=== PATIENT | female | born 1960 | race Caucasian/White ===

== ENCOUNTER 2017-12-11 16:21 | Emergency (ER) | payer OTHER, MEDICAID, SELFPAY ==
[2017-12-11 16:26] VITALS: BP 113/74; PULSE 125; RESP 22; TEMP 38.3; O2SAT 93
--- NOTE | 2017-12-11 17:09 | ED.ABDPAIN ---
HPI - Abdominal Pain General Chief Complaint: Abdominal Pain Stated Complaint: LEFT ARM PAIN,NAUSEA/VOMIT RECENT FX,L WRIST Time Seen by Provider: 12/11/17 16:55 Source: patient Mode of arrival: ambulatory Limitations: no limitations History of Present Illness HPI narrative: Patient is here for evaluation of fever and coughing and right lower quadrant abdominal pain. She states that the symptoms started on Tuesday of last week. She did have surgery on Tuesday of last week for a left wrist fracture which I evaluated here in the emergency department in the past. States that she has had a productive cough fevers. Right lower quadrant pain which she states may be because of all the coughing however has also had problems controlling bowel movements. No urinary symptoms. No skin changes. Related Data Previous Rx's Medication Instructions Recorded hydrocodone-acetaminophen 1 tab PO Q4-6H PRN #20 tab 11/26/17 hydrocodone-acetaminophen 1 tab PO Q4-6H PRN #8 tab 11/26/17 levofloxacin 750 mg PO Q24H 5 Days #5 tab 12/11/17 Allergies Allergy/AdvReac Type Severity Reaction Status Date / Time iodine Allergy Severe SWELLING Verified 11/26/17 14:41 Review of Systems Constitutional Reports fatigue, Reports fever(s) and Reports weakness Cardiovascular Denies chest pain, Denies irregular heart rhythm, Denies lightheadedness, Denies palpitations and Denies orthopnea Respiratory Reports change in phlegm color, Reports chest congestion, Reports cough, Reports excessive phlegm production and Reports pain with cough Gastrointestinal Gastrointestinal: Reports abdominal pain, Denies heartburn, Reports fecal incontinence, Reports diarrhea and Reports nausea Genitourinary Denies hematuria, Denies flank pain, Denies urinary incontinence and Denies urinary urgency Musculoskeletal Comments: Postoperative pain left wrist Integumentary/Breasts Denies pruritus, Denies erythema, Denies rash and Denies wounds Neurologic Reports weakness Endocrine Reports fatigue and Denies palpitations Hematologic/Lymphatic Denies easy bruising [facility] Medical History Distal radius fracture, left (Acute) Social History Smoking Status: Current every day smoker Exam Initial Vital Signs Initial Vital Signs: Vital Signs Temperature 101.0 F H 12/11/17 16:26 Pulse Rate 125 H 12/11/17 16:26 Respiratory Rate 22 05/20/18 16:26 Blood Pressure 113/74 12/11/17 16:26 Pulse Oximetry 93 12/11/17 16:26 [facility] Head: normal to inspection, normocephalic and atraumatic Resp Effort & Inspection: normal respiratory effort, cough, not labored, no nasal flaring, no respiratory distress and no retractions Auscultation: clear to auscultation bilaterally, no rales, no rhonchi and no wheezes Cardio Rate: tachycardic Rhythm: regular rhythm GI Inspection: normal to inspection and non-distended Palpation: soft, No guarding and tender (Right lower quadrant) Skin General: no rashes or lesions noted, No jaundice and No petechiae Neuro General: alert, oriented x3, gait normal and no focal motor deficits Cranial Nerves: CN's II-XI intact bilaterally Speech: speech normal Motor: strength 5/5 throughout Sensory Exam: no sensory deficits noted Extrem Other: Postoperative left wrist splint in place Course Orders Ordered: ED Orders 12/11/17 16:40 Complete Blood Count AUTO DIFF Stat Comprehensive Metabolic Panel Stat Lactate (Lactic Acid) Stat Lipase Stat 12/11/17 17:23 CT abdomen pelvis w con Stat XR chest 2V Stat Urinalysis and Microscopic Stat Acetaminophen (Tylenol) 650 mg PO Q4HR PRN PRN Reason: As Needed for Fever/Mild Pain Ondansetron HCl (Zofran) 4 mg IV Q2HR PRN PRN Reason: Nausea And Vomiting Last Admin: 12/11/17 18:08 Dose: 4 mg Discontinued Medications Sodium Chloride (Normal Saline 0.9%) 1,000 mls @ 1,000 mls/hr IV BOLUS ONE Stop: 12/11/17 18:21 Last Infusion: 12/11/17 18:39 Dose: 0 mls/hr Admin: 12/11/17 17:36 Dose: 1,000 mls/hr Levofloxacin (Levaquin) 750 mg PO NOW ONE Stop: 12/11/17 18:01 Last Admin: 12/11/17 18:09 Dose: 750 mg Vital Signs - 8 hr 12/11/17 16:26 12/11/17 18:24 Temperature 101.0 F H 103.0 F H Pulse Rate 125 H 114 H Respiratory Rate 22 22 Blood Pressure 113/74 Blood Pressure [Right Arm] 131/74 H Pulse Oximetry 93 93 MDM - Abdominal Pain Lab Data Attestation: I reviewed the patient's lab results. Result diagrams: 12/11/17 16:40 12/11/17 16:40 Lab Results 12/11/17 12/11/17 12/11/17 Range/Units 16:40 16:40 16:40 WBC 22.1 H (4.5-11.0) X10^3/uL RBC 5.15 (4.0-5.2) X10^6/uL Hgb 15.8 (12.0-16.0) g/dL Hct 45.8 (36-46) % MCV 88.9 (80-100) fL MCH 30.7 (26-34) PG MCHC 34.5 (30-36) % RDW 13.0 (11.6-14.8) % Plt Count 387 (150-400) X10^3/uL Neut % (Auto) 85.5 H (50-75) % Lymph % (Auto) 5.3 L (25-40) % [place] % (Auto) 9.0 (3-14) % Eos % (Auto) 0.0 L (2-4) % Baso % (Auto) 0.2 (0-2) % Neut # (Auto) 32852 H (6389-6040) /uL Sodium 137 (137-145) mmol/L Potassium 3.8 (3.4-5.1) mmol/L Chloride 100.0 (98-107) mmol/L Carbon Dioxide 24.0 (22-32) mmol/L BUN 15.0 (7-17) mg/dL Creatinine 0.70 (0.52-1.04) mg/dL Estimated GFR > 60.0 (>60) mL/min BUN/Creatinine Ratio 21.4 (6-22) Glucose 116 H (70-100) mg/dL Lactate 1.2 (0.7-2.1) mmol/L Calcium 9.4 (8.4-10.2) mg/dL Total Bilirubin 0.9 (0.2-1.3) mg/dL AST 19 (14-36) IU/L ALT 15 (9-52) IU/L Alkaline Phosphatase 139 H (38-126) U/L Total Protein 7.9 (6.3-8.2) g/dL Albumin 3.9 (3.5-5.0) g/dL Globulin 4.0 (1.7-4.1) g/dL Albumin/Globulin Ratio 1.0 (1.0-2.8) Lipase (23-300) U/L 12/11/17 Range/Units 16:40 WBC (4.5-11.0) X10^3/uL RBC (4.0-5.2) X10^6/uL Hgb (12.0-16.0) g/dL Hct (36-46) % MCV (80-100) fL MCH (26-34) PG MCHC (30-36) % RDW (11.6-14.8) % Plt Count (150-400) X10^3/uL Neut % (Auto) (50-75) % Lymph % (Auto) (25-40) % [place] % (Auto) (3-14) % Eos % (Auto) (2-4) % Baso % (Auto) (0-2) % Neut # (Auto) (1212-0201) /uL Sodium (137-145) mmol/L Potassium (3.4-5.1) mmol/L Chloride (98-107) mmol/L Carbon Dioxide (22-32) mmol/L BUN (7-17) mg/dL Creatinine (0.52-1.04) mg/dL Estimated GFR (>60) mL/min BUN/Creatinine Ratio (6-22) Glucose (70-100) mg/dL Lactate (0.7-2.1) mmol/L Calcium (8.4-10.2) mg/dL Total Bilirubin (0.2-1.3) mg/dL AST (14-36) IU/L ALT (9-52) IU/L Alkaline Phosphatase (38-126) U/L Total Protein (6.3-8.2) g/dL Albumin (3.5-5.0) g/dL Globulin (1.7-4.1) g/dL Albumin/Globulin Ratio (1.0-2.8) Lipase 29 (23-300) U/L Imaging Data Chest x-ray: Radiologist's impression: PROCEDURE: XR CHEST 2V INDICATIONS: Fever and cough post surgery TECHNIQUE: 2 views of the chest were acquired. COMPARISON: [facility] CR, XR CHEST 1 VIEW, 08/16/2017, 16:37. FINDINGS: Surgical changes and devices: None. Lungs and pleura: There are confluent right lower lobe opacities consistent with consolidation. There is suggestion of a small right pleural effusion. Left lung appears clear. Mediastinum: Mediastinal contours are normal. Heart size is normal. Bones and chest wall: No suspicious bony abnormalities. Soft tissues appear unremarkable. IMPRESSION: 1. Right lower lobe consolidation consistent with pneumonia with a small parapneumonic effusion. Dictated by: Jaison Hale M.D. on 12/11/2017 at 17:56 CT scan - abdomen: Radiologist's impression: PROCEDURE: CT ABDOMEN PELVIS W CON INDICATIONS: Right lower quadrant abdominal pain TECHNIQUE: After the administration of intravenous contrast, 5 mm thick sections acquired from the diaphragms to the symphysis. 5 mm thick coronal and sagittal reformats were performed. For radiation dose reduction, the following was used: automated exposure control, adjustment of mA and/or kV according to patient size. COMPARISON: [facility], , ABDOMEN WITHOUT CONTRAST, 05/17/2014, 9:55. FINDINGS: Image quality: Excellent. ABDOMEN: Lung bases: There is confluent consolidation within the right lower lobe. Mild enlarged mediastinal and right hilar lymph nodes are demonstrated, measuring up to approximately 1.2 cm in short axis. Heart size is normal. Solid organs: Liver is normal in size and enhancement. Gallbladder is surgically absent. Biliary system is non-dilated. Pancreas enhances normally. Spleen is normal in size and enhancement. No adrenal nodules. Kidneys demonstrate no hydronephrosis. There are small hypodensities in the kidneys which are too small to characterize but likely represent cysts. Peritoneum and bowel: Stomach, small bowel, and colon loops are normal in caliber and wall thickness. The appendix is normal in appearance. There is intraluminal fluid throughout the colon with air-fluid levels suggestive of a gastroenteritis. No free fluid or air. Nodes and vessels: No retroperitoneal or mesenteric adenopathy. Aorta and inferior vena cava are normal in caliber. Miscellaneous: No ventral hernias. PELVIS: Genitourinary: Bladder wall thickness is normal. Miscellaneous: No inguinal hernias or adenopathy. Bones: No suspicious bony lesions. No vertebral body compression fractures. IMPRESSION: 1. Right lower lobe consolidation consistent with pneumonia. 2. Enlarged right hilar and mediastinal lymph nodes are nonspecific and may be reactive. 3. No evidence of appendicitis. 4. Intraluminal fluid throughout the colon with air-fluid levels suggestive of a gastroenteritis. Dictated by: Jaison Hale M.D. on 12/11/2017 at 18:29 MDM Narrative Medical decision making narrative: Patient is not in respiratory distress. Tolerated oral medications here in the emergency department. Does have a right lower lobe pneumonia. I suspect this is secondary from the surgery 1 week ago either from the intubation or from the vomiting afterwards. Will send home on Levaquin. Patient was given return precautions. Has a follow-up in a couple days with her orthopedic surgeon. It did not take the surgical dressing down as I have low suspicion for an infection. Patient expressed understanding and agreement with plan Discharge Plan Departure Patient Disposition: Home, Self-Care Clinical Impression: Pneumonia Instructions: DI for Pneumonia -- Adult Activity Restrictions/Additional Instructions: Take the antibiotics as directed. Keep all of your scheduled medical appointments. Return to the emergency department for any new symptoms, problems breathing, inability to take the antibiotics or any other concerning symptoms. Call your primary care doctor for a follow-up. Prescriptions: New levofloxacin 750 mg tablet 750 mg PO Q24H 5 Days Qty: 5 RF: 0 No Action hydrocodone-acetaminophen 5-325 mg tablet 1 tab PO Q4-6H PRN (Reason: pain) Qty: 8 RF: 0 hydrocodone-acetaminophen 5-325 mg tablet 1 tab PO Q4-6H PRN (Reason: pain) Qty: 20 RF: 0
--- NOTE | 2017-12-11 17:23 | DI.RAD.S_ITS ---
PROCEDURE: XR CHEST 2V INDICATIONS: Fever and cough post surgery TECHNIQUE: 2 views of the chest were acquired. COMPARISON: [facility], CR, XR CHEST 1 VIEW, 08/16/2017, 16:37. FINDINGS: Surgical changes and devices: None. Lungs and pleura: There are confluent right lower lobe opacities consistent with consolidation. There is suggestion of a small right pleural effusion. Left lung appears clear. Mediastinum: Mediastinal contours are normal. Heart size is normal. Bones and chest wall: No suspicious bony abnormalities. Soft tissues appear unremarkable. IMPRESSION: 1. Right lower lobe consolidation consistent with pneumonia with a small parapneumonic effusion. Dictated by: Jaison Hale M.D. on 12/11/2017 at 17:56 Approved by: Jaison Hale M.D. on 12/11/2017 at 18:00
--- NOTE | 2017-12-11 17:23 | DI.CT.S_ITS ---
PROCEDURE: CT ABDOMEN PELVIS W CON INDICATIONS: Right lower quadrant abdominal pain TECHNIQUE: After the administration of intravenous contrast, 5 mm thick sections acquired from the diaphragms to the symphysis. 5 mm thick coronal and sagittal reformats were performed. For radiation dose reduction, the following was used: automated exposure control, adjustment of mA and/or kV according to patient size. COMPARISON: [facility], , ABDOMEN WITHOUT CONTRAST, 05/17/2014, 9:55. FINDINGS: Image quality: Excellent. ABDOMEN: Lung bases: There is confluent consolidation within the right lower lobe. Mild enlarged mediastinal and right hilar lymph nodes are demonstrated, measuring up to approximately 1.2 cm in short axis. Heart size is normal. Solid organs: Liver is normal in size and enhancement. Gallbladder is surgically absent. Biliary system is non-dilated. Pancreas enhances normally. Spleen is normal in size and enhancement. No adrenal nodules. Kidneys demonstrate no hydronephrosis. There are small hypodensities in the kidneys which are too small to characterize but likely represent cysts. Peritoneum and bowel: Stomach, small bowel, and colon loops are normal in caliber and wall thickness. The appendix is normal in appearance. There is intraluminal fluid throughout the colon with air-fluid levels suggestive of a gastroenteritis. No free fluid or air. Nodes and vessels: No retroperitoneal or mesenteric adenopathy. Aorta and inferior vena cava are normal in caliber. Miscellaneous: No ventral hernias. PELVIS: Genitourinary: Bladder wall thickness is normal. Miscellaneous: No inguinal hernias or adenopathy. Bones: No suspicious bony lesions. No vertebral body compression fractures. IMPRESSION: 1. Right lower lobe consolidation consistent with pneumonia. 2. Enlarged right hilar and mediastinal lymph nodes are nonspecific and may be reactive. 3. No evidence of appendicitis. 4. Intraluminal fluid throughout the colon with air-fluid levels suggestive of a gastroenteritis. Dictated by: Jaison Hale M.D. on 12/11/2017 at 18:29 Approved by: Jaison Hale M.D. on 12/11/2017 at 18:33
[2017-12-11 17:29] LABS: Add Manual Diff / Slide Review NO; Basophils Percent Auto 0.2 % (0-2); Hematocrit 45.8 % (36-46); Hemoglobin 15.8 g/dL (12.0-16.0); Lymphocytes Percent Auto 5.3 % (25-40); Mean Corpuscular HGB Conc 34.5 % (30-36); Mean Corpuscular Hemoglobin 30.7 PG (26-34); Mean Corpuscular Volume 88.9 fL (80-100); Neutrophils Absolute Auto 18900 /uL (3000-5900); Neutrophils Percent Auto 85.5 % (50-75); Platelet Count 387 X10^3/uL (150-400); Red Blood Cell Count 5.15 X10^6/uL (4.0-5.2); White Blood Cell Count 22.1 X10^3/uL (4.5-11.0)
[2017-12-11 17:36] LABS: Alanine Aminotransferase 15 IU/L (9-52); Albumin 3.9 g/dL (3.5-5.0); Alkaline Phosphatase 139 U/L (38-126); Aspartate Aminotransferase 19 IU/L (14-36); BUN Creatinine Ratio 21.4 (6-22); Bilirubin Total 0.9 mg/dL (0.2-1.3); Calcium 9.4 mg/dL (8.4-10.2); Estimated Glomerular Filt Rate > 60.0 mL/min (>60); Glucose 116 mg/dL (70-100); HEMOLYSIS 15 (0-50); Lipase 29 U/L (23-300); Potassium 3.8 mmol/L (3.4-5.1); Sodium 137 mmol/L (137-145); Total Protein 7.9 g/dL (6.3-8.2)
[2017-12-11] MEDS: SODIUM CHLORIDE 0.9% 1,000 ML 1000 ML IV (17:36)
[2017-12-11 17:37] LABS: Lactate (Lactic Acid) 1.2 mmol/L (0.7-2.1)
[2017-12-11] MEDS: ONDANSETRON 4 MG/2 ML INJ IV (18:08)
[2017-12-11] MEDS: levoFLOXacin 250 MG TABLET 750 MG PO (18:09)
[2017-12-11 18:24] VITALS: BP 131/74; PULSE 114; RESP 22; TEMP 39.4; O2SAT 93
[2017-12-11 19:04] VITALS: TEMP 37.4
== END 2017-12-11 19:05 | disposition home or self-care (01) ==
PROVIDERS: Emergency Provider Emergency Medicine; PCP Family Medicine
DX: J18.9 Pneumonia, unspecified organism (principal)
CPT/HCPCS: 71046; 74177; 80053; 83605; 83690; 85025; 96361; 96374; 99283; 99285; J2405; Q9967

== ENCOUNTER 2017-12-12 22:13 | Inpatient (IN) | payer OTHER, MEDICAID, SELFPAY ==
[2017-12-12 22:23] VITALS: BP 93/65; PULSE 110; RESP 20; TEMP 37.4; O2SAT 94
--- NOTE | 2017-12-12 22:44 | DI.RAD.S_ITS ---
PROCEDURE: XR CHEST 2V INDICATIONS: pneumonia, fever, sob TECHNIQUE: 2 views of the chest were acquired. COMPARISON: [facility], CR, XR CHEST 2V, 12/11/2017, 17:03. FINDINGS: Surgical changes and devices: Surgical clips right upper quadrant.. Lungs and pleura: Right lower lobe consolidation has increased, appearing more confluent. Likelihood of small right pleural effusion again noted. No pneumothorax. Mediastinum: Mediastinal contours are normal. Heart size is normal. Bones and chest wall: No suspicious bony abnormalities. Soft tissues appear unremarkable. IMPRESSION: Right lower lobe pneumonia appearing more confluent. Dictated by: Brandt Sung M.D. on 12/13/2017 at 7:53 Approved by: Brandt Sung M.D. on 12/13/2017 at 7:55
[2017-12-12] MEDS: SODIUM CHLORIDE 0.9% 1,000 ML 1000 ML IV (23:05)
[2017-12-12 23:15] VITALS: BP 103/62; PULSE 90; RESP 18; O2SAT 95
[2017-12-12 23:57] LABS: INR 1.5 (0.9-1.3); Prothrombin Time 16.3 SECONDS (10.1-12.7)
[2017-12-13] VITALS (15 sets, daily range): BP systolic 100–121; BP diastolic 63–100; PULSE 70–107; RESP 15–33; TEMP 36.5–38.7; O2SAT 92–97; BMI 187.6
[2017-12-13 00:01] LABS: Add Manual Diff / Slide Review NO; Basophils Percent Auto 0.1 % (0-2); Bilirubin Total 0.7 mg/dL (0.2-1.3); Calcium 9.1 mg/dL (8.4-10.2); Estimated Glomerular Filt Rate > 60.0 mL/min (>60); Glucose 117 mg/dL (70-100); HEMOLYSIS < 15 (0-50); Hematocrit 41.4 % (36-46); Hemoglobin 14.2 g/dL (12.0-16.0); Lymphocytes Percent Auto 5.3 % (25-40); Mean Corpuscular HGB Conc 34.3 % (30-36); Mean Corpuscular Hemoglobin 30.2 PG (26-34); Mean Corpuscular Volume 88.2 fL (80-100); Neutrophils Absolute Auto 15300 /uL (3000-5900); Neutrophils Percent Auto 81.6 % (50-75); Platelet Count 344 X10^3/uL (150-400); Potassium 3.2 mmol/L (3.4-5.1); Red Blood Cell Count 4.69 X10^6/uL (4.0-5.2); Red Cell Distribution Width 12.9 % (11.6-14.8); Sodium 137 mmol/L (137-145); White Blood Cell Count 18.7 X10^3/uL (4.5-11.0)
[2017-12-13 00:02] LABS: Lactate (Lactic Acid) 1.2 mmol/L (0.7-2.1)
[2017-12-13 00:22] LABS: Procalcitonin 3.35 ng/mL (<0.5)
[2017-12-13] MEDS: PIPERACILLIN-TAZO 4.5 GM/100 ML FROZ.PIGGY IV (00:45)
[2017-12-13] MEDS: SODIUM CHLORIDE 0.9% 1,000 ML 1000 ML IV (00:50)
--- NOTE | 2017-12-13 01:36 | PC.NURSE ---
History of recent left arm fracture surgery. Vomited after surgery and developed what is likely an aspiration pneumonia.
--- NOTE | 2017-12-13 04:46 | ED_ITS ---
HPI - SOB/Dyspnea General Chief Complaint: Shortness of Breath/Dyspnea Stated Complaint: FEVER 103,HARD TIME BREATHING,CHEST PAIN Time Seen by Provider: 12/12/17 22:41 History of Present Illness HPI 57-year-old female on POD 7 from a left hand surgery presents with worsening cough, fevers, chills after being diagnosed yesterday with pneumonia and started on Levaquin; surgical history notable for PACU emesis with uncertain aspiration. Patient notes moderate distress, no identifiable provoking or relieving factors. No no dysuria or urinary frequency. M/S/F/SocHx notable for: please see HPI; remainder reviewed with patient and in chart. ROS: Negative constitutional, eye, cardiovascular, pulmonary, GI, , MSK, skin , neurologic, psychiatric, endocrine unless noted in the HPI. Exam Gen: pleasant, uncomfortable but not in extremis. HEENT: NC, AT, PEERL, EOMI, neck supple, no goiter appreciated. Resp: diminished right lower lobe breath sounds, otherwise clear to auscultation bilaterally with mildly increased work of breathing. Card: Regular rate and rhythm with no murmurs, rubs, or gallops, extremities warm and well perfused. GI: Non-tender to palpation throughout all quadrants, no focal tenderness at McBurney's point, negative Soriano's sign, non-distended, no rebound or guarding. : No suprapubic tenderness to palpation. MSK: left-hand splinting, fingers warm and well perfused, full functional range of motion, sensation intact to touch. No other visible abnormalities. Skin: Normal color, no petechiae, buttocks without pressure ulcers, palms and soles visually normal, no further visible lesions. Neuro: AOx3, no facial asymmetry, vision and hearing WNL. Psych: Mood and affect appropriate. Labs / Imaging (pertinent): WBC 18.7, Hb 14.2, PLT 344, PT/INR 1.5, Na 137, K 3.2, Bilirubin 0.7, Lactate 1.2, Procalcitonin 3.35, lipase 29. CXR: No acute cardiopulmonary disease process. No focal infiltrate, cardiomegaly , rib fractures, or mediastinal widening, lung markings extend to the periphery bilaterally and there are no deep sulci. Radiologist's read pending. MDM Previous chart, nursing note, labs, imaging, and vitals reviewed. A: 57-year-old female on POD 7 from a left hand surgery presents with worsening cough, fevers, chills after being diagnosed yesterday with pneumonia and started on Levaquin; surgical history notable for PACU emesis with uncertain aspiration.. Evaluation: Patient meets CMS sepsis screening guidelines (temperature, heart rate, respiratory rate, leukocytosis), source as below. Does meet qSOFA criteria with a score of 2. Infectious Source: * Pulmonary: patient with focal infiltrate. Levaquin discontinued. Due to concern for aspiration patient given Zosyn. * Urine: UA noninfectious. * Skin: Consider a cutaneous source unlikely given absence of significant infection appreciated on exam. * [employer]: Doubt given the lack of meningismus, petechia, and the overall clinical presentation. * Abdomen: Doubt given the non-tender abdomen and an alternate source. * Spine: Given the absence of back pain and an alternate source further investigation for possible epidural abscess, spinal osteomyelitis, or discitis are not currently warranted. * Lines: Patient without indwelling lines/ports. Resuscitation: * Blood cultures, 2 L NS, and Zosyn ordered with the initial evaluation. Disposition: admitted for further care. Impression: pneumonia (please reference below for remainder of encounter information) Critical Care Time Organ system(s): Cardiopulmonary, vascular, [employer], Renal Intervention: Assessment of the patient, interpretation of studies, communication related to patient care. Time: 30 minutes were spent directly related to patient care exclusive of separately billed procedures The patient is also without evidence of pancreatitis (lipase within clinically acceptable limits), adrenal insufficiency is tentatively considered unlikely as there is no evidence of chronic steroid use, no known adrenal insufficiency and the patient has been without refractory hypotension. Thyroid disease was considered, given the absence of known thyroid disease or goiter on exam, and a tentatively explaining etiology for the patient?s presentation further investigation is not currently indicated. Ingestion/OD are felt to be unlikely given history, absence of significant mydriasis, and lack of appreciated clonus or hyperreflexia, as well as an alternate explaining etiology.The possibility of alcohol, benzodiazepine, opiate withdrawal were considered and while history is limited at this point these do not appear to be contributing. Related Data Previous Rx's Medication Instructions Recorded hydrocodone-acetaminophen 1 tab PO Q4-6H PRN #20 tab 11/26/17 hydrocodone-acetaminophen 1 tab PO Q4-6H PRN #8 tab 11/26/17 levofloxacin 750 mg PO Q24H 5 Days #5 tab 12/11/17 Allergies Allergy/AdvReac Type Severity Reaction Status Date / Time iodine Allergy Severe SWELLING Verified 11/26/17 14:41 PFSH Social History Smoking Status: Current every day smoker Exam Initial Vital Signs Initial Vital Signs: Vital Signs Temperature 99.4 F 12/12/17 22:23 Pulse Rate 110 H 12/12/17 22:23 Respiratory Rate 20 12/12/17 22:23 Blood Pressure 93/65 12/12/17 22:23 Pulse Oximetry 94 12/12/17 22:23 Course Orders Ordered: ED Orders 12/12/17 22:43 Blood Culture Stat 12/12/17 22:44 XR chest 2V Stat 12/12/17 23:35 Basic Metabolic Panel Stat Bilirubin Total Stat Complete Blood Count AUTO DIFF Stat Lactate (Lactic Acid) Stat Procalcitonin Stat Prothrombin Time INR Stat 12/12/17 23:36 Blood Culture Stat 12/13/17 04:42 Urinalysis and Microscopic Stat Discontinued Medications Sodium Chloride (Normal Saline 0.9%) 1,000 mls @ 1,000 mls/hr IV BOLUS ONE Stop: 12/12/17 23:44 Last Infusion: 12/13/17 00:46 Dose: 0 mls/hr Admin: 12/12/17 23:05 Dose: 1,000 mls/hr Sodium Chloride (Normal Saline 0.9%) 1,000 mls @ 1,000 mls/hr IV BOLUS ONE Stop: 12/13/17 00:37 Last Infusion: 12/13/17 02:21 Dose: 0 mls/hr Admin: 12/13/17 00:50 Dose: 1,000 mls/hr Piperacillin/Tazobactam/Dextrose (Zosyn) 4.5 gm in 100 mls @ 200 mls/hr IV NOW ONE Stop: 12/13/17 00:07 Last Infusion: 12/13/17 01:27 Dose: 0 mls/hr Admin: 12/13/17 00:45 Dose: 200 mls/hr Sodium Chloride (Normal Saline 0.9%) 1,000 mls @ 1,000 mls/hr IV BOLUS ONE Stop: 12/13/17 00:38 Last Admin: 12/13/17 01:43 Dose: Vital Signs - 8 hr 12/12/17 23:15 12/13/17 00:15 12/13/17 00:29 Temperature Pulse Rate 90 89 89 Respiratory Rate 18 16 16 Blood Pressure [Left Arm] 103/62 116/74 116/74 Pulse Oximetry 95 94 94 12/13/17 01:30 12/13/17 05:11 12/13/17 06:36 Temperature 100.4 F H Pulse Rate 91 H 94 H 107 H Respiratory Rate 17 33 H 16 Blood Pressure [Left Arm] 103/76 102/78 118/100 H Pulse Oximetry 95 97 97 MDM - SOB/Dyspnea Lab Data Result diagrams: 12/12/17 23:35 12/12/17 23:35 Lab Results 12/12/17 12/12/17 12/12/17 Range/Units 23:35 23:35 23:35 WBC 18.7 H (4.5-11.0) X10^3/uL RBC 4.69 (4.0-5.2) X10^6/uL Hgb 14.2 (12.0-16.0) g/dL Hct 41.4 (36-46) % MCV 88.2 (80-100) fL MCH 30.2 (26-34) PG MCHC 34.3 (30-36) % RDW 12.9 (11.6-14.8) % Plt Count 344 (150-400) X10^3/uL Neut % (Auto) 81.6 H (50-75) % Lymph % (Auto) 5.3 L (25-40) % [place] % (Auto) 13.0 (3-14) % Eos % (Auto) 0.0 L (2-4) % Baso % (Auto) 0.1 (0-2) % Neut # (Auto) 78196 H (4923-0854) /uL PT 16.3 H (10.1-12.7) SECONDS INR 1.5 H (0.9-1.3) Sodium 137 (137-145) mmol/L Potassium 3.2 L (3.4-5.1) mmol/L Chloride 102.0 (98-107) mmol/L Carbon Dioxide 25.0 (22-32) mmol/L BUN 16.0 (7-17) mg/dL Creatinine 0.80 (0.52-1.04) mg/dL Estimated GFR > 60.0 (>60) mL/min BUN/Creatinine Ratio 20.0 (6-22) Glucose 117 H (70-100) mg/dL Lactate (0.7-2.1) mmol/L Calcium 9.1 (8.4-10.2) mg/dL Total Bilirubin 0.7 (0.2-1.3) mg/dL Procalcitonin (<0.5) ng/mL 12/12/17 12/12/17 Range/Units 23:35 23:35 WBC (4.5-11.0) X10^3/uL RBC (4.0-5.2) X10^6/uL Hgb (12.0-16.0) g/dL Hct (36-46) % MCV (80-100) fL MCH (26-34) PG MCHC (30-36) % RDW (11.6-14.8) % Plt Count (150-400) X10^3/uL Neut % (Auto) (50-75) % Lymph % (Auto) (25-40) % [place] % (Auto) (3-14) % Eos % (Auto) (2-4) % Baso % (Auto) (0-2) % Neut # (Auto) (4836-2746) /uL PT (10.1-12.7) SECONDS INR (0.9-1.3) Sodium (137-145) mmol/L Potassium (3.4-5.1) mmol/L Chloride (98-107) mmol/L Carbon Dioxide (22-32) mmol/L BUN (7-17) mg/dL Creatinine (0.52-1.04) mg/dL Estimated GFR (>60) mL/min BUN/Creatinine Ratio (6-22) Glucose (70-100) mg/dL Lactate 1.2 (0.7-2.1) mmol/L Calcium (8.4-10.2) mg/dL Total Bilirubin (0.2-1.3) mg/dL Procalcitonin 3.35 H (<0.5) ng/mL Discharge Plan Departure Prescriptions: No Action levofloxacin 750 mg tablet 750 mg PO Q24H 5 Days Qty: 5 RF: 0 hydrocodone-acetaminophen 5-325 mg tablet 1 tab PO Q4-6H PRN (Reason: pain) Qty: 8 RF: 0 hydrocodone-acetaminophen 5-325 mg tablet 1 tab PO Q4-6H PRN (Reason: pain) Qty: 20 RF: 0
[2017-12-13 07:51] LABS: HCO3 ABG 19 mmol/L (23-27); PCO2 ABG 27.9 mmHg (35-45); PO2 ABG 65 mmHg (80-105); TCO2 ABG 20 mmol/L (23-27); pH ABG 7.44 (7.35-7.45)
[2017-12-13 07:52] LABS: Fractionated Inspired Oxygen 0.21; Oxygen Saturation ABG 94 % (95-100)
--- NOTE | 2017-12-13 08:41 | PC.NURSE ---
incontinent of bowel, pericare provided, blue depend provided. by nhan harvey
--- NOTE | 2017-12-13 09:52 | P.HP_ITS ---
History of Present Illness Chief complaint: Pneumonia, Sepsis Narrative: Amelia Walker is a 57 year old female presents with increasing cough and fever. She started having symptoms about 5 days ago and was seen in the emergency department on TuesdayDecember 11 for cough diagnosed with pneumonia S and prescribed Levaquin and sent home and then on Tuesday the she started having increasing fevers chills worsening cough and feeling worse and finally came back late in the evening. Also of note she had surgery on her wrist about 10 days ago and supposedly had a vomiting after anesthesia as she was coming out of anesthesia. This was on November 26 and her symptoms did restart until December 06. She does smoke tobacco she is a pack-a-day smoker she has not smoked now for 5 days Meds Home Medications Medication Instructions Recorded Confirmed Type hydrocodone-acetaminophen 1 tab PO Q4-6H PRN #8 tab 11/26/17 Rx levofloxacin 750 mg PO Q24H 5 Days #5 tab 12/11/17 Rx aspirin 12/13/17 History bupropion HCl 12/13/17 History glecaprevir-pibrentasvir [Mavyret] 3 tab PO DAILYCC 12/13/17 12/13/17 History ondansetron HCl 12/13/17 History Allergies Allergy/AdvReac Type Severity Reaction Status Date / Time iodine Allergy Severe SWELLING Verified 11/26/17 14:41 Review of Systems Review of Systems All systems reviewed & are unremarkable except as noted in HPI and below Exam Vital Signs (past 8 hours): Vital Signs - 8 hr 3 12/13/17 05:11 12/13/17 06:36 12/13/17 07:18 Temperature 100.4 F H Pulse Rate 94 H 107 H 101 H Respiratory Rate 33 H 16 15 Blood Pressure Blood Pressure [Left Arm] 102/78 118/100 H 103/67 Pulse Oximetry 97 97 95 3 12/13/17 08:11 Temperature 100.1 F H Pulse Rate 95 H Respiratory Rate 18 Blood Pressure 121/81 H Blood Pressure [Left Arm] Pulse Oximetry 94 Pulse Oximetry 94 Oxygen Delivery Method Room Air Oxygen Flow Rate 0 Narrative Exam Narrative: Pleasant middle-aged female sitting up in a chair audible wheezing some difficulty breathing loose cough noted HEENT exam oropharynx clear mucous membranes moist Neck is supple Lungs diffuse wheezing rhonchi prolonged expiratory phase with bronchial breath sounds in the right base Heart regular rhythm Abdomen soft nontender bowel sounds present Lower extremities no edema Skin warm and dry Neuro exam awake alert oriented no focal deficits Objective Labs Result Diagrams: 12/12/17 23:35 12/12/17 23:35 Labs: Laboratory Results - last 24 hr 12/12/17 12/12/17 12/12/17 23:35 23:35 23:35 WBC 18.7 H RBC 4.69 Hgb 14.2 Hct 41.4 MCV 88.2 MCH 30.2 MCHC 34.3 RDW 12.9 Plt Count 344 Neut % (Auto) 81.6 H Lymph % (Auto) 5.3 L [place] % (Auto) 13.0 Eos % (Auto) 0.0 L Baso % (Auto) 0.1 Neut # (Auto) 46925 H PT 16.3 H INR 1.5 H ABG pH ABG pCO2 ABG pO2 ABG HCO3 ABG Total CO2 ABG O2 Saturation ABG Base Excess FiO2 Sodium 137 Potassium 3.2 L Chloride 102.0 Carbon Dioxide 25.0 BUN 16.0 Creatinine 0.80 Estimated GFR > 60.0 BUN/Creatinine Ratio 20.0 Glucose 117 H Lactate Calcium 9.1 Total Bilirubin 0.7 Procalcitonin 12/12/17 12/12/17 12/13/17 23:35 23:35 07:31 WBC RBC Hgb Hct MCV MCH MCHC RDW Plt Count Neut % (Auto) Lymph % (Auto) [place] % (Auto) Eos % (Auto) Baso % (Auto) Neut # (Auto) PT INR ABG pH 7.44 ABG pCO2 27.9 L ABG pO2 65 L ABG HCO3 19 L ABG Total CO2 20 L ABG O2 Saturation 94 L ABG Base Excess -5.0 L FiO2 0.21 Sodium Potassium Chloride Carbon Dioxide BUN Creatinine Estimated GFR BUN/Creatinine Ratio Glucose Lactate 1.2 Calcium Total Bilirubin Procalcitonin 3.35 H Assessment & Plan (1) Distal radius fracture, left: Current visit: No Status: Acute (2) Current every day smoker: Current visit: Yes Status: Acute Plan: Plan: One. Community-acquired pneumonia having failed outpatient management. Patient will be admitted to the hospital for IV antibiotics and oxygen supplementation and IV steroids. I think she probably has some underlying COPD with her long history of smoking does have some bronchospasms and wheezing noted. Plan to place her on a dose of bronchodilators and Solu-Medrol. IV fluids for now will culture blood and sputum. 2. DVT prophylaxis Lovenox to be used 3. Recent wrist fracture continue with hydrocodone as needed.
[2017-12-13] MEDS: ENOXAPARIN 40 MG/0.4 ML SYRINGE SUBCUT (10:39)
[2017-12-13] MEDS: KETOROLAC 30 MG/ML VIAL IV (10:39)
[2017-12-13] MEDS: CEFTRIAXONE 1 GM/50 ML FROZ.PIGGY IV (10:40)
[2017-12-13] MEDS: SODIUM CHLORIDE 0.45% 1,000 ML 100 ML IV ×2 (10:40→23:00)
[2017-12-13] MEDS: AZITHROMYCIN 500 MG in DEXTROSE 5% IN WATER 250 ML IV (13:13)
[2017-12-13 14:58] LABS: Appearance Urine UA CLEAR; Bilirubin Urine UA NEGATIVE (NEGATIVE); Color Urine UA YELLOW; Glucose Urine UA NEGATIVE (Negative); Ketones Urine UA TRACE (NEGATIVE); Leukocyte Esterase Urine UA NEGATIVE (NEGATIVE); Nitrite Urine UA NEGATIVE (NEGATIVE); Occult Blood Urine UA TRACE-LYSED (Negative); Protein Urine UA 1+ (Negative); Urobilinogen Urine UA 0.2 E.U./dL (0.2); pH Urine UA 5.5 (4.5-8.0)
[2017-12-13 15:18] LABS: Amorphous Sediment Urine 1+; Bacteria Urine Few (2-10); Mucus Urine 2+ (Negative); RBC Urine 0-1/HPF (0-5/HPF); Squamous Epithelial Cell Urine 1-5 /HPF; WBC Urine 1-5/HPF (0-5/HPF)
[2017-12-13 15:19] LABS: Culture Indicated Urine Cult Not Indicated
[2017-12-13] MEDS: ALBUTEROL/IPRATROPIUM 3 ML AMPUL INH ×2 (17:56→22:08)
[2017-12-13] MEDS: ACETAMINOPHEN 325 MG TABLET 650 MG PO (21:25)
[2017-12-13] MEDS: ZOLPIDEM 5 MG TABLET PO (21:41)
[2017-12-14] VITALS (10 sets, daily range): BP systolic 105–139; BP diastolic 61–87; PULSE 70–91; RESP 16–22; TEMP 36.4–36.8; O2SAT 93–97
[2017-12-14] MEDS: ACETAMINOPHEN 325 MG TABLET 650 MG PO (02:50)
--- NOTE | 2017-12-14 05:05 | PC.NURSE ---
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 Pt awake and alert. complains of throat pain from coughing, pt has slight hoarseness, pt given gum and hot tea. pt stated it was helping. pt refused pain medication at this time, pt SBA to BR. PT tolerating fluids OK. Pt uses call light. Pt bed in lowest, locked position. will continue to monitor pt for safety. 0115- pt up and states her throat is just so dry, given chicken broth, pt also complains that her head hurts from all the coughing. given tylenol per eMAR. Pt seems worked up and upset. discussed options with pt and pt compliant. will continue to monitor. 0430- pt asking for jello- states her throat is just so dry, encouraged to drink fluids and keep trying to cough stuff up. still waiting for sputum specimen. Pt bed alarm on, side rails upx2 will continue to monitor pt for safety.
[2017-12-14] MEDS: SODIUM CHLORIDE 0.45% 1,000 ML 100 ML IV (06:04)
[2017-12-14 06:26] LABS: Add Manual Diff / Slide Review NO; Basophils Percent Auto 0.3 % (0-2); Hematocrit 37.9 % (36-46); Lymphocytes Percent Auto 4.1 % (25-40); Mean Corpuscular HGB Conc 34.1 % (30-36); Mean Corpuscular Volume 87.7 fL (80-100); Monocytes Percent Auto 4.3 % (3-14); Neutrophils Absolute Auto 14900 /uL (3000-5900); Neutrophils Percent Auto 91.3 % (50-75); Platelet Count 367 X10^3/uL (150-400); Red Blood Cell Count 4.32 X10^6/uL (4.0-5.2); Red Cell Distribution Width 12.6 % (11.6-14.8); White Blood Cell Count 16.3 X10^3/uL (4.5-11.0)
[2017-12-14 06:33] LABS: Calcium 8.7 mg/dL (8.4-10.2); Estimated Glomerular Filt Rate > 60.0 mL/min (>60); Glucose 181 mg/dL (70-100); HEMOLYSIS < 15 (0-50); Sodium 141 mmol/L (137-145)
[2017-12-14] MEDS: ENOXAPARIN 40 MG/0.4 ML SYRINGE SUBCUT (09:10)
[2017-12-14] MEDS: CEFTRIAXONE 1 GM/50 ML FROZ.PIGGY IV (09:10)
[2017-12-14] MEDS: KETOROLAC 30 MG/ML VIAL IV ×2 (09:10→20:26)
[2017-12-14] MEDS: ALBUTEROL/IPRATROPIUM 3 ML AMPUL INH ×2 (09:44→20:03)
--- NOTE | 2017-12-14 10:53 | P.PN_ITS ---
Subjective Interval history: Still with quite a cough now sore throat but breathing easier this morning Date Patient Seen: 12/14/17 Time Patient Seen: 10:51 Exam Vital Signs (past 8 hours): Vital Signs - 8 hr 3 12/14/17 05:55 12/14/17 08:00 12/14/17 09:46 Temperature 97.9 F 97.8 F Pulse Rate 70 80 75 Respiratory Rate 19 22 16 Blood Pressure 113/74 105/61 Pulse Oximetry 95 95 96 Pulse Oximetry 96 Fraction of Inspired Oxygen 21 Oxygen Delivery Method Room Air Oxygen Flow Rate 0 Narrative Exam Narrative: Sitting up in a chair no acute distress Oropharynx clear Neck is supple Lungs bronchial breath sounds in the right base less wheezing Heart regular rhythm Abdomen soft nontender no masses bowel sounds present Lower extremities no edema Skin warm and dry Neuro exam unremarkable Objective Labs Result Diagrams: 12/14/17 05:43 12/14/17 05:43 Labs: Laboratory Results - last 24 hr 12/13/17 12/14/17 12/14/17 14:00 05:43 05:43 WBC 16.3 H RBC 4.32 Hgb 13.0 Hct 37.9 MCV 87.7 MCH 30.0 MCHC 34.1 RDW 12.6 Plt Count 367 Neut % (Auto) 91.3 H Lymph % (Auto) 4.1 L [place] % (Auto) 4.3 Eos % (Auto) 0.0 L Baso % (Auto) 0.3 Neut # (Auto) 29783 H Sodium 141 Potassium 3.0 L Chloride 110.0 H Carbon Dioxide 22.0 BUN 14.0 Creatinine 0.50 L Estimated GFR > 60.0 BUN/Creatinine Ratio 28.0 H Glucose 181 H Calcium 8.7 Urine Color Yellow Urine Appearance Clear Urine pH 5.5 Ur Specific [place] 1.020 Urine Protein 1+ H Urine Glucose (UA) Negative Urine Ketones Trace H Urine Occult Blood Trace-lysed Urine Nitrate Negative Urine Bilirubin Negative Urine Urobilinogen 0.2 Ur Leukocyte Esterase Negative Urine RBC 0-1/hpf Urine WBC 1-5/hpf Ur Squamous Epith Cells 1-5 /hpf Amorphous Sediment 1+ Urine Bacteria Few (2-10) H Urine Mucus 2+ H Ur Culture Indicated? Cult not indicated Micro UA Comment Not Reportable Assessment & Plan Plan: Plan: One. Community-acquired pneumonia after having failed outpatient management. Improvement over the 1st day of treatment with IV antibiotics IV fluids steroids and bronchodilators. Probably has some underlying COPD. Plan to continue current treatment but stop the IV fluids reassess tomorrow possibly discharge tomorrow if doing better. White count still quite elevated. 2. DVT prophylaxis on Lovenox 3. Recent wrist fracture continue with hydrocodone as needed Quality VTE Deep Vein Thrombosis/Pulmonary Embolism Present on Admission: No
[2017-12-14] MEDS: BENZOCAINE/MENTHOL 1 LOZ PKT 1 EACH PO ×2 (12:25→20:25)
[2017-12-14] MEDS: POTASSIUM CHLORIDE 20 MEQ TAB PO ×2 (12:25→16:15)
[2017-12-14] MEDS: AZITHROMYCIN 500 MG in DEXTROSE 5% IN WATER 250 ML IV (12:28)
--- NOTE | 2017-12-14 14:33 | PC.SBAR ---
SITUATION: [Pt reports pain in throat, up to 6/10. ] BACKGROUND: [Pt admitted to Acute Care for pneumonia and sepsis. Pt has persistent productive cough and hoarse voice.] ASSESSMENT: [Pt is grimacing while talking or coughing. Pt with hoarse, raspy voice. Pt reports pain 6/10 in throat.] RECOMMENDATION: [Cepacol throat lozenges, pain medications as ordered.] RESPONSE: [Spoke to MD and received order for cepacol throat lozenges, pt reports improved pain. Also given toradol IV, pt reports pain imrpoved to 2/10.]
--- NOTE | 2017-12-14 15:50 | CM.DANOTE ---
DCP assessment: case received, EMR reviewed and met briefly pt this morning. As she was working with nursing staff at the time met again now in followup. Introduced self and role. DCP Template completed with info currently available. Pt is a 57 year old female who admitted yesterday to care of hospitalist team. DX: pneumonia with COPD exacerbation. (pt says was a cigarette smoker for 30 years, quit a week ago and plans not to resume this habit). PCP: Dr. Paresh Soler, [facility] [address]. Payer: [employer] Pt plans home with her and adult daughter's prn assist when stable for same. She is currently coughing, nauseous, likely her a few more days. P: home, clinic followup, when stable for same.
[2017-12-14] MEDS: ZOLPIDEM 5 MG TABLET PO (21:12)
[2017-12-15] VITALS (8 sets, daily range): BP systolic 117–138; BP diastolic 61–82; PULSE 70–86; RESP 17–20; TEMP 36.3–36.6; O2SAT 94–97
[2017-12-15] MEDS: BENZOCAINE/MENTHOL 1 LOZ PKT 1 EACH PO (04:50)
--- NOTE | 2017-12-15 05:48 | PC.NURSE ---
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 Denies pain, states has intermittent dry cough. AE clear throughout upper lung garcia, expiratory wheeze noted to bilateral lower lung garcia. O2 sat 95% on RA, denies respiratory distress.Cepacol lozenge prn given X1 per pt request at 0450. Ambulated in halls X1 with steady gait. Pt reported her hopes to be discharged today as she has an outpatient appointment with ortho clinic in [place] at 1540 today to have her YURIY cast removed. No other voiced concerns.
[2017-12-15 06:17] LABS: Add Manual Diff / Slide Review NO; Basophils Percent Auto 0.1 % (0-2); Hematocrit 38.7 % (36-46); Hemoglobin 13.1 g/dL (12.0-16.0); Lymphocytes Percent Auto 4.7 % (25-40); Mean Corpuscular HGB Conc 33.8 % (30-36); Mean Corpuscular Hemoglobin 29.8 PG (26-34); Mean Corpuscular Volume 88.1 fL (80-100); Monocytes Percent Auto 4.9 % (3-14); Neutrophils Absolute Auto 21200 /uL (3000-5900); Neutrophils Percent Auto 90.3 % (50-75); Platelet Count 407 X10^3/uL (150-400); Red Blood Cell Count 4.39 X10^6/uL (4.0-5.2); Red Cell Distribution Width 13.1 % (11.6-14.8); White Blood Cell Count 23.6 X10^3/uL (4.5-11.0)
[2017-12-15 06:22] LABS: Alanine Aminotransferase 62 IU/L (9-52); Albumin 2.8 g/dL (3.5-5.0); Albumin Globulin Ratio 0.9 (1.0-2.8); Alkaline Phosphatase 103 U/L (38-126); Aspartate Aminotransferase 52 IU/L (14-36); BUN Creatinine Ratio 34.3 (6-22); Bilirubin Total 0.2 mg/dL (0.2-1.3); Calcium 9.1 mg/dL (8.4-10.2); Estimated Glomerular Filt Rate > 60.0 mL/min (>60); Globulin 3.1 g/dL (1.7-4.1); Glucose 145 mg/dL (70-100); HEMOLYSIS < 15 (0-50); Potassium 3.7 mmol/L (3.4-5.1); Sodium 143 mmol/L (137-145); Total Protein 5.9 g/dL (6.3-8.2)
[2017-12-15] MEDS: ALBUTEROL/IPRATROPIUM 3 ML AMPUL INH (07:26)
[2017-12-15] MEDS: POTASSIUM CHLORIDE 20 MEQ TAB PO (08:02)
[2017-12-15] MEDS: PANTOPRAZOLE 20 MG TABLET PO (08:25)
[2017-12-15] MEDS: ENOXAPARIN 40 MG/0.4 ML SYRINGE SUBCUT (10:11)
[2017-12-15] MEDS: CEFTRIAXONE 1 GM/50 ML FROZ.PIGGY IV (10:11)
[2017-12-15] MEDS: AZITHROMYCIN 500 MG in DEXTROSE 5% IN WATER 250 ML IV (12:57)
[2017-12-15] MEDS: CALCIUM CARBONATE 500 MG TAB 1000 MG PO (13:04)
--- NOTE | 2017-12-15 14:05 | PM.DS.1 ---
History of Present Illness Chief complaint: Pneumonia, Sepsis Narrative: Narrative: Amelia Walker is a 57 year old female presents with increasing cough and fever. She started having symptoms about 5 days ago and was seen in the emergency department on TuesdayDecember 11 for cough diagnosed with pneumonia S and prescribed Levaquin and sent home and then on Tuesday the she started having increasing fevers chills worsening cough and feeling worse and finally came back late in the evening. Also of note she had surgery on her wrist about 10 days ago and supposedly had a vomiting after anesthesia as she was coming out of anesthesia. This was on November 26 and her symptoms did restart until December 06. She does smoke tobacco she is a pack-a-day smoker she has not smoked now for 5 days Discharge Providers Date of admission: 12/13/17 07:26 Primary care physician: Ilene Orellana DO Consults: 12/13/17 06:48 Consult to Physician Routine Comment: Consulting Provider: Kareem Zarco Reason for consultation: PNA Has provider been notified: Yes 12/13/17 09:39 Consult to Respiratory Therapy Evaluate & Treat Comment: Physician Instructions: Evaluate and treat Discharge provider: CYNTHIA Davila Summary Discharge Diagnosis: Community Acquired Pneumonia, Sepsis Hospital Course: 1. CAP: This 57 year old female had an unremarkable hospitalization for outpatient failure treatment of Community Acquired Pneumonia. She was treated for a positive sputum culture showing Streptococcus Group C and was treated with Rocephin and Azithromycin IV. Brochodilators and IV steroids were also employed. Tmax during hospitalization was 101.7 but she has remained afebrile for the past 48 hours prior to discharge. She continues to have an elevated WBC She may also have some underlying COPD 2. Right wrist fracture: Denies pain in the area of fracture. To be followed-up today with Ortho for cast removal and suture removal. Status at Discharge Cognitive/behavioral status at discharge: Alert and oriented and pleasant in conversation. Functional status at discharge: independent ambulation Overall status at discharge: patient is not back to baseline ([place] improved since admission but states she is ready to go home and to have follow-up to have cast removed. ) Time Spent with Patient Greater than 30 minutes Exam Vital Signs (past 8 hours): Vital Signs - 8 hr 12/15/17 07:00 12/15/17 07:27 12/15/17 07:50 Temperature 97.3 F L Pulse Rate 82 80 Respiratory Rate 18 20 Blood Pressure 129/77 H Pulse Oximetry 94 97 94 Pulse Oximetry 94 Fraction of Inspired Oxygen 21 Oxygen Delivery Method Room Air Oxygen Flow Rate 0 Narrative Exam Narrative: Patient states she is much improved and ready to be discharged. Const General: cooperative and comfortable Nutritional Appearance: average body habitus Orientation: alert, awake and oriented x3 HENMT Head: normal to inspection Eyes General: appearance normal, both eyes and all related structures Neck Neck: normal visual inspection Chest Chest: normal inspection of the chest Resp Effort & Inspection: normal respiratory effort, able to speak in complete sentences and cough Quality of cough: productive Auscultation: bronchial breath sounds and wheezes right upper Cardio Rate: regular rate Heart Sounds: S1 normal and S2 normal GI Inspection: normal to inspection General: other (normal) Back/Spine/Pelvis Back: normal to inspection Skin Lesions: lesion noted (lower legs) Neuro General: alert, awake and oriented x3 Cranial Nerves: CN's II-XI intact bilaterally Cognition: normal cognition Speech: speech normal Gait: normal gait Motor: muscle tone normal throughout Sensory Exam: no sensory deficits noted Extrem General: normal to inspection Right upper extremity: normal to inspection Left upper extremity: normal to inspection Right lower extremity: normal to inspection Left lower extremity: normal to inspection Psych Appearance: grossly normal Mental Status: mental status grossly normal Speech and Movement: speech and movement normal Mood: congruent mood Affect: normal affect Attitude: cooperative Thought Process: normal Thought Content: normal Judgment: judgment good Objective Labs Result Diagrams: 12/15/17 05:40 12/15/17 05:40 Labs: Laboratory Results - last 24 hr 12/15/17 12/15/17 05:40 05:40 WBC 23.6 H RBC 4.39 Hgb 13.1 Hct 38.7 MCV 88.1 MCH 29.8 MCHC 33.8 RDW 13.1 Plt Count 407 H Neut % (Auto) 90.3 H Lymph % (Auto) 4.7 L [place] % (Auto) 4.9 Eos % (Auto) 0.0 L Baso % (Auto) 0.1 Neut # (Auto) 52403 H Sodium 143 Potassium 3.7 Chloride 110.0 H Carbon Dioxide 21.0 L BUN 24.0 H Creatinine 0.70 Estimated GFR > 60.0 BUN/Creatinine Ratio 34.3 H Glucose 145 H Calcium 9.1 Total Bilirubin 0.2 AST 52 H ALT 62 H Alkaline Phosphatase 103 Total Protein 5.9 L Albumin 2.8 L Globulin 3.1 Albumin/Globulin Ratio 0.9 L Discharge Plan Discharge Plan Patient Disposition: Home, Self-Care Provider Discharge Instructions Diet: Diet as Tolerated and Regular Activity: As tolerated Wound Care Report to your healthcare provider any signs of infection, such as:: chills, fever, night sweats, increased pain and unusual drainage Other wound treatment: As per orthopedics Discharge Data Primary Care Provider: Ilene Orellana Attending Provider: Kareem Zarco Admit Date/Time: 12/13/17 07:26 Quality VTE Deep Vein Thrombosis/Pulmonary Embolism Present on Admission: No
--- NOTE | 2017-12-15 14:21 | CM.DPNOTE ---
Per MD: patient to discharge home today. Met with patient: patient agreeable to discharge and has no concerns or needs. Plan: Patient to discharge home today.
== END 2017-12-15 14:50 | disposition home or self-care (01) | DRG 194 ==
LOC: ED 12-13 06:48 → AC 12-13 07:27
PROVIDERS: Internal Medicine; Admitting Provider Internal Medicine; Emergency Provider Emergency Medicine; PCP Family Medicine; Visit Provider Internal Medicine
DX: J15.4 Pneumonia due to other streptococci (principal); J44.0 Chronic obstructive pulmonary disease with (acute) lower respiratory infection; F17.210 Nicotine dependence, cigarettes, uncomplicated; S52.502D Unspecified fracture of the lower end of left radius, subsequent encounter for closed fracture with routine healing
CPT/HCPCS: 36415; 36591; 36600; 71046; 80048; 80053; 81001; 82247; 82805; 83605; 84145; 85025; 85610; 87040; 87070; 87077; 87205; 93005; 94640; 94760; 96360; 99285; 99406; J1650; J1885; J2543; J2920; J7050

== ENCOUNTER 2017-12-17 09:37 | Emergency (ER) | payer OTHER, MEDICAID, SELFPAY ==
[2017-12-13 10:15] VITALS: BMI 187.6
[2017-12-17 09:43] VITALS: BP 144/96; PULSE 101; RESP 24; TEMP 36.2; O2SAT 98; BMI 28.6
[2017-12-17 09:49] VITALS: BP 144/96; PULSE 101; RESP 24; TEMP 36.2; O2SAT 98; BMI 28.6
[2017-12-17] MEDS: ALBUTEROL/IPRATROPIUM 3 ML AMPUL INH (10:09)
[2017-12-17 10:11] VITALS: O2SAT 96
--- NOTE | 2017-12-17 10:30 | ED_ITS ---
HPI - SOB/Dyspnea General Chief Complaint: Shortness of Breath/Dyspnea Stated Complaint: trouble breathing Time Seen by Provider: 12/17/17 09:56 Source: patient Mode of arrival: ambulatory Limitations: no limitations History of Present Illness 57F recently discharged with dx of R side pneumonia, sent home with antibiotics , prednisone taper presents with SOB in ED. Patient has been compliant with medications. Related Data Home Medications Medication Instructions Recorded Confirmed bupropion HCl 150 mg PO BID 12/13/17 12/17/17 omeprazole 20 mg PO DAILY 12/13/17 12/17/17 Previous Rx's Medication Instructions Recorded amoxicillin-pot clavulanate 1 tab PO TID 3 Days #9 tab 12/15/17 azithromycin 500 mg PO DAILY 3 Days tab 12/15/17 benzocaine-menthol [Cepacol Sore 1 ea PO Q1HR PRN #18 ea 12/15/17 Throat (kimi-men)] prednisone 10 mg PO DAILY #10 tab 12/15/17 prednisone 20 mg PO DAILY #7 tab 12/15/17 prednisone 50 mg PO DAILY 3 Days tab 12/15/17 albuterol sulfate 2 puff INHALATION Q4-6H PRN #8 gram 12/17/17 Allergies Allergy/AdvReac Type Severity Reaction Status Date / Time iodine Allergy Severe SWELLING Verified 12/13/17 10:12 Review of Systems Review of Systems ROS: Constitutional - No fever, chills Eyes - No visual changes ENT - No hearing loss Cardiovascular - No chest pain, No edema, no palpitations Respiratory - productive cough, mild shortness of breath GI - No abdominal pain, No nausea, No vomiting - No dysuria, no hematuria MSK- No back pain Skin - No rash Neuro - No weakness, no change in level of consciousness Endocrine - No polyuria Hematologic/lymphatic - No easy bruising, no petechiae PFSH Medical History Current every day smoker (Acute) Distal radius fracture, left (Acute) Social History household members: spouse and children Smoking Status: Current every day smoker alcohol intake: never Exam Narrative Exam Narrative: Exam: Constitutional - Well appearing, well nourished, NAD EYES - PERRL, EOMI ENT - Moist oral mucosa Cardiovasuclar - Normal rate, rhythm, no murmurs, gallops, rubs Respiratory - Initial exam showed R side wheeze and poor air entry. After duoneb, patient has R side crackles, no wheeze. , no increased respiratory effort, no accessory muscle use GI - Soft, non tender, non distended, no rebound MSK - No deformity, No CVA tenderness, No peripheral edema Skin - No rash, no petechiae Neuro - A&Ox3, moves all extremities. No focal deficits Initial Vital Signs Initial Vital Signs: Vital Signs Temperature 97.1 F L 12/17/17 09:43 Pulse Rate 101 H 12/17/17 09:43 Respiratory Rate 24 12/17/17 09:43 Blood Pressure 144/96 H 12/17/17 09:43 Pulse Oximetry 98 12/17/17 09:43 Course Orders Ordered: Discontinued Medications Albuterol/Ipratropium (Duoneb) 3 ml INH NOW ONE Stop: 12/17/17 10:04 Last Admin: 12/17/17 10:09 Dose: 3 ml Vital Signs - 8 hr 12/17/17 09:43 12/17/17 09:49 12/17/17 10:11 Temperature 97.1 F L 97.1 F L Pulse Rate 101 H 101 H Respiratory Rate 24 24 Blood Pressure 144/96 H 144/96 H Pulse Oximetry 98 98 96 MDM - SOB/Dyspnea Differential Diagnosis Likely community acquired pneumonia (reactive airway ) MDM Narrative Medical decision making narrative: Patient with bronchospasm secondary to pneumonia Was not discharged with albuterol. After 1 duoneb, patient has improvement of symptoms and resolution of wheezing. Will add inhaler with spacer with instructions to use q4h while at home. Patient to f/u with PCP Spo2 on RA is >96%, no dyspnea. Stable for discharge Discharge Plan Departure Patient Disposition: Home, Self-Care Clinical Impression: Acute bronchospasm, Pneumonia Instructions: DI for Reactive Airway Disease-Adult Activity Restrictions/Additional Instructions: Maintain adequate hydration. Please follow up with your primary care provider. Use inhaler with spacer every 4 hours while awake while symptoms persist. Prescriptions: New albuterol sulfate 90 mcg/actuation HFA aerosol inhaler 2 puff INHALATION Q4-6H PRN (Reason: bronchospasm) Qty: 8 RF: 0 No Action bupropion HCl 150 mg tablet extended release 12 hr 150 mg PO BID RF: 0 omeprazole 20 mg tablet,delayed release (DR/EC) 20 mg PO DAILY RF: 0 benzocaine-menthol [Cepacol Sore Throat (kimi-men)] 15-3.6 mg Lozenge 1 ea PO Q1HR PRN (Reason: Sore Throat) Qty: 18 RF: 0 prednisone 10 mg tablet 10 mg PO DAILY Qty: 10 RF: 0 prednisone 20 mg tablet 20 mg PO DAILY Qty: 7 RF: 0 prednisone 50 mg tablet 50 mg PO DAILY 3 Days RF: 0 amoxicillin-pot clavulanate 875-125 mg tablet 1 tab PO TID 3 Days Qty: 9 RF: 0 azithromycin 500 mg tablet 500 mg PO DAILY 3 Days RF: 0
[2017-12-17 10:43] VITALS: BP 130/55; PULSE 88; RESP 18; O2SAT 97
[2017-12-17] MEDS: ALBUTEROL HFA PREPACK 1 BOX MISC (10:56)
== END 2017-12-17 11:07 | disposition home or self-care (01) ==
PROVIDERS: Emergency Provider Student in an Organized Health Care Education/Training Program; Family Provider Family Medicine; PCP Family Medicine
DX: J98.01 Acute bronchospasm (principal); J18.9 Pneumonia, unspecified organism
CPT/HCPCS: 94640; 99283; 99284

== ENCOUNTER → 2018-04-11 08:47 | Outpatient (CLI) | payer OTHER, MEDICAID, SELFPAY ==
[2017-12-13 10:15] VITALS: BMI 187.6
--- NOTE | 2018-04-21 10:15 | PM.PFT.1 ---
Pulmonary Function Test Referral & Results Date Patient Seen: 04/11/18 Requesting provider: Shahbaz Clinton Indication: Cough Results: The spirometry demonstrates an FVC of 2.58 L which is 73% of predicted. The FEV1 was measured at 1.85 L which is 67% of predicted. The FEV1/FVC ratio was 72 which is 90% of predicted. Following the administration of bronchodilator there was a 6% improvement in FEV1 and a 21% improvement in FEF 25-75% Lung volumes show an SVC of 2.33 L which is 72% of predicted. The diffusing capacity was measured at 24.40 which is 95% of predicted. The maximum voluntary ventilation was reduced Interpretation: This study demonstrates moderate obstructive lung disease with only very limited evidence of any benefit following bronchodilator administration There is also [id number] restrictive lung disease present based on reduction in SVC
--- OUTSIDE RECORDS SUMMARY | 2018-06-26 11:43 | XMS_ITS | Summary of Care ---
:1960 Author Organization [facility] Address [address] [place] [id number] Care Team Providers Name Role Phone Chandan Soler MD Primary Care Provider Reason for Referral Diagnostic Imaging (Routine) Status Reason Specialty Diagnoses / Referred By Referred To Procedures Contact Contact Pending Review Radiology Diagnoses ASHD (arteriosclerotic heart disease) Shahbaz [facility] Procedures ECHOCARDIOGRAM STRESS TREADMILL MD Rachael Echocardiography [address] [place], [place] [phone] Phone: Hospital - Outpatient (Routine) Status Reason Specialty Diagnoses / Procedures Referred By Contact Referred To Contact Closed Diagnoses [facility] cough [facility] Complete PFT with DLITZEL MUSTAFA [address] [place] [address] [address] [phone] [place] [address] Reason for Visit Reason Comments Coronary Artery Disease Consultation (Routine) Status Reason Specialty Diagnoses / Procedures Referred By Referred To Contact Contact Authorized Cardiology Diagnoses Atherosclerotic heart disease of [place] coronary artery without angina pectoris Chandan Soler Procedures AR OFFICE OUTPATIENT VISIT 25 MINUTES AR OFFICE CONSULTATION NEW/ESTAB PATIENT 40 MIN MD [facility] [address] [address] [place], [place] Phone: [phone] Phone: Encounter Details Date Type Department Care Team Description 03/31/2018 Office Visit Brigitte Mckeon Shahbaz ClintonRosemary ( arteriosclerotic heart disease) (Primary Dx); Clinics Cardiology MD Rachael Smoking; Altagracia [address] Chronic cough; [address] [place] [address] [address] Hyperlipidemia, unspecified [place] [phone] Allergies Active Allergy Reactions Severity Noted Date Comments Iodine 08/16/2017 as of this encounter Medications Prescription Sig. Disp. Refills Start Date End Date Status hydrOXYzine (ATARAX) Take 25 mg by 07/20/2017 Active 25 mg tablet mouth every 8 (eight) hours as needed. pantoprazole Take 1 tablet 30 tablet 11 08/17/2017 08/17/2018 Active (PROTONIX) 40 mg EC (40 mg total) by tablet mouth daily. aspirin 81 mg EC Take 1 tablet 30 tablet 11 08/17/2017 08/17/2018 Active tablet (81 mg total) by mouth daily. naproxen (NAPROSYN) 01/18/2018 Active 500 mg tablet benzonatate (TESSALON) 02/22/2018 Active 100 mg capsule atorvastatin (LIPITOR) Take 1 tablet 90 tablet 3 03/31/2018 03/31/2019 Active 10 mg tablet (10 mg total) by mouth nightly as of this encounter Active Problems Problem Noted Date Chest pain 08/16/2017 Immunizations Name Dates Previously Given Next Due Hep A-Hep B, Adult (Twinrix) 07/08/2017 Influenza, Quadrivalent 05/27/2017, 05/05/2013, 05/05/2012 VFC Pneumococcal Polysaccharide PPV23 05/27/2017 ([id number]) VFC Tdap (Boostrix,Adacel) 07/25/2011 as of this encounter Social History Tobacco Use Types Packs/Day Years Used Date Current Every Day Smoker Cigarettes 0.5 Smokeless Tobacco: Never Used Alcohol Use Drinks/Week oz/Week Comments Yes very rarely Sex Assigned at Date Recorded Not on file as of this encounter Last Filed Vital Signs Vital Sign Reading Time Taken Blood Pressure 138/88 03/31/2018 3:46 PM PDT Pulse 74 03/31/2018 3:46 PM PDT Temperature - - Respiratory Rate - - Oxygen Saturation - - Inhaled Oxygen Concentration - - Weight 82.4 kg (181 lb 9.6 oz) 03/31/2018 3:46 PM PDT Height 167.6 cm (5' 5.98) 03/31/2018 3:46 PM PDT Body Mass Index 29.33 03/31/2018 3:46 PM PDT in this encounter Progress Notes Shahbaz Clinton MD - 03/31/2018 3:30 PM PDTFormatting of this note may be different from the original. Subjective Patient ID: Amelia Salazar is a 57 y.o. female that presents today for had concerns including Coronary Artery Disease. HPI: 57 yo W h/o smoking here for evaluation of her ASHD noted on CT scan. Patient is here by herself. Patient had a CT scan done this summer for lung cancer screening that showed coronary calcifications per PCP note. Patient states that she is feeling fine now. Patient has chronic productive cough that is usually worse in the morning. Patient denies any chest pain, dyspnea, heart racing sensations, lightheadedness, or syncope. 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 PROBLEM LIST: # ASHD noted on CT scan # Smoking Past Medical History: Diagnosis Date ??? Hepatitis C ??? History of transfusion ??? Hypertension Past Surgical History: Procedure Laterality Date ??? ABDOMINAL SURGERY gallbladder ??? GALLBLADDER SURGERY ??? TUBAL LIGATION Family History Problem Relation Age of Onset ??? Stroke Sister Social History Social History ??? Marital status: Spouse name: N/A ??? Number of children: N/A ??? Years of education: N/A Social History Main Topics ??? Smoking status: Current Every Day Smoker Packs/day: 0.50 Types: Cigarettes ??? Smokeless tobacco: Never Used ??? Alcohol use Yes Comment: very rarely ??? Drug use: Yes Comment: in the past meth, marijuana ??? Sexual activity: Not Asked Other Topics Concern ??? None Social History Narrative ??? None Allergies Allergen Reactions ??? Iodine Current Medication List Sig aspirin 81 mg EC tablet Take 1 tablet (81 mg total) by mouth daily. benzonatate (TESSALON) 100 mg capsule hydrOXYzine (ATARAX) 25 mg tablet Take 25 mg by mouth every 8 (eight) hours as needed. naproxen (NAPROSYN) 500 mg tablet pantoprazole (PROTONIX) 40 mg EC tablet Take 1 tablet (40 mg total) by mouth daily. atorvastatin (LIPITOR) 10 mg tablet Take 1 tablet (10 mg total) by mouth nightly Review of Systems Constitutional: Positive for unexpected weight change. Negative for fatigue. Respiratory: Positive for shortness of breath. Negative for chest tightness. Cardiovascular: Negative for chest pain, palpitations and leg swelling. Gastrointestinal: Negative for blood in stool. Heartburn Endocrine: Negative for polydipsia. Genitourinary: Negative for hematuria. Skin: Negative for rash. Neurological: Negative for dizziness, weakness and light-headedness. Hematological: Does not bruise/bleed easily. Psychiatric/Behavioral: The patient is nervous/anxious. Objective BP 138/88 (BP Location: Left arm, Patient Position: Sitting) Pulse 74 Ht 1.676 m Wt 82.4 kg BMI 29.33 kg/m?? Physical Exam: General appearance: No apparent distress, well-nourished, pleasant, cooperative HEET: Normocephalic atraumatic, no scleral icterus, tongue midline, mucous membranes moist Neck: supple Cardiovascular: RRR, normal S1 and normal S2, no murmurs/ rubs/gallops, PMI nondisplaced, no JVD, noperipheral edema Respiratory: Good aeration, CTAB Abdomen: Soft, nontender, nondistended, + bowel sounds Neuro: Alert, no facial droop, tongue midline, no gross motor deficits Psych: appropriate affect Skin: no rashes on face, neck, and lower extremities Pharmaceutical nuclear stress test 07/2017: 1. Normal myocardial perfusion images. 2. Normal left ventricular volume and systolic function. 3. No chest pain or diagnostic EKG changes for ischemia. CT scan 02/06/2018: moderate calcifications in the proximal LAD, LCx, and RCA. Assessment/Plan Diagnoses and all orders for this visit: ASHD (arteriosclerotic heart disease) - ECHOCARDIOGRAM STRESS TREADMILL; Future - Lipid panel; Future Smoking Chronic cough - Complete PFT with DLCO; Future Hyperlipidemia, unspecified hyperlipidemia type - Lipid panel; Future Other orders - atorvastatin (LIPITOR) 10 mg tablet; Take 1 tablet (10 mg total) by mouth nightly Assessment/Plan Comments: # ASHD: patient has no symptoms. She was noted to have moderate calcifications in the proximal LAD,LCx, and RCA. She had a pharmaceutical nuclear stress test in 07/2017 that was low risk study. Given absence of symptoms, I educated the patient to work on secondary prevention of CAD and avoid invasive angiography for now. Plan: - Start aspirin 81mg daily - Start atorvastatin 10mg qhs - Significant time spent on benefits of smoking cessation. Patient aware of it and will work with her to quit smoking. Their 10 year wedding anniversary is coming up this month. - Treadmill stress echo in 5 months to reassess for symptoms - Lipid panel ordered for 5 months # Cough: suspect chronic bronchitis. Plan: - PFTs ordered F/U in 5 months with stress, labs, and PFTs Electronically signed by Shahbaz Clinton MD 03/31/2018 4:44 PM in this encounter Plan of Treatment Upcoming Encounters Date Type Specialty Care Team Description 10/02/2018 Office Visit Pulmonology Kimi Morocho MD [facility] [address] [place], [place] [id number] Scheduled Tests Name Priority Associated Diagnoses Order Schedule Complete PFT with DLCO Routine Chronic cough Expected: 03/31/2018, Expires: 03/31/2019 ECHOCARDIOGRAM STRESS Routine ASHD (arteriosclerotic Expected: 08/14/2018, TREADMILL heart disease) Expires: 03/31/2020 Lipid panel Routine ASHD (arteriosclerotic Expected: 08/14/2018, heart disease) Expires: 03/31/2019 Hyperlipidemia, unspecified hyperlipidemia type Health Maintenance Due Date Last Done Comments Depression Screening (PHQ-2) 1973 Cervical Cancer Screening 1991 Colorectal Cancer Screening 2011 (Colonoscopy) Influenza Vaccine (#1) 2018 05/27/2017, 05/05/2013, 05/05/2012 Breast Cancer Screening 06/15/2019 06/15/2017 as of this encounter Procedures Procedure Name Priority Date/Time Associated Comments Diagnosis CT EXTERNAL RESULTS 02/06/2018 12:00 Results for this AM PDT procedure are in the results section. MISCELLANEOUS LAB TEST 01/17/2018 12:00 Results for this AM PDT procedure are in the results section. in this encounter Results CT EXTERNAL RESULTS (02/06/2018) Narrative Performed At Ordered by an unspecified provider. MISCELLANEOUS LAB TEST (01/17/2018) Narrative Performed At Ordered by an unspecified provider. in this encounter Visit Diagnoses Diagnosis ASHD (arteriosclerotic heart disease) - Primary Coronary atherosclerosis of unspecified type of vessel, [place] or graft Smoking Tobacco use disorder Chronic cough Cough Hyperlipidemia, unspecified hyperlipidemia type Insurance Payer Benefit Plan / Group Subscriber ID Type Phone Address [facility] [employer] OPTIONS xxxxxxxxx MANAGED as of this encounter
== END ==
PROVIDERS: Visit Provider Internal Medicine Cardiovascular Disease
DX: R05 Cough (principal)
CPT/HCPCS: 94010; 94060; 94726; 94729

== ENCOUNTER → 2018-04-18 09:08 | Outpatient (CLI) | payer OTHER, MEDICAID, SELFPAY ==
[2017-12-13 10:15] VITALS: BMI 187.6
--- NOTE | 2018-04-18 09:09 | DI.RAD.S_ITS ---
PROCEDURE: XR CHEST 2V INDICATIONS: cough TECHNIQUE: 2 views of the chest were acquired. COMPARISON: [facility], CR, XR CHEST 2V, 12/12/2017, 22:45. FINDINGS: Surgical changes and devices: None. Lungs and pleura: Previously seen right-sided effusion has resolved in the interim. No new effusion or definite area of consolidation is evident. There is no pneumothorax. Mediastinum: Mediastinal contours are normal. Heart size is normal. Bones and chest wall: No suspicious bony abnormalities. Soft tissues appear unremarkable. IMPRESSION: Improved aeration of the lungs. No definite pneumonia. Dictated by: Jose A Denny M.D. on 04/18/2018 at 9:31 Approved by: Jose A Denny M.D. on 04/18/2018 at 9:43
== END ==
PROVIDERS: Visit Provider Physician Assistant
DX: R05 Cough (principal)
CPT/HCPCS: 71046

== ENCOUNTER → 2019-09-28 08:54 | Outpatient (CLI) | payer OTHER, SELFPAY ==
[2017-12-13 10:15] VITALS: BMI 187.6
--- NOTE | 2019-09-28 08:56 | DI.RAD.S_ITS ---
PROCEDURE: XR CHEST 2V INDICATIONS: cough TECHNIQUE: 2 views of the chest were acquired. COMPARISON: [facility], CR, XR CHEST 2V, 04/18/2018, 8:50. FINDINGS: Surgical changes and devices: None. Lungs and pleura: Lungs are clear. No pleural effusions or pneumothorax. Mediastinum: Mildly tortuous thoracic aorta is again seen. Heart size is normal. Bones and chest wall: No suspicious bony abnormalities. Soft tissues appear unremarkable. IMPRESSION: No acute cardiopulmonary pathology. Dictated by: Andres Isaacs M.D. on 09/28/2019 at 9:18 Approved by: Andres Isaacs M.D. on 09/28/2019 at 9:19
== END ==
PROVIDERS: Referring Provider Physician Assistant; Visit Provider Physician Assistant
DX: R05 Cough (principal)
CPT/HCPCS: 71046

== ENCOUNTER → 2020-06-16 13:59 | Outpatient (ROUT) | payer OTHER, SELFPAY ==
[2017-12-13 10:15] VITALS: BMI 187.6
[2020-06-16 14:05] LABS: Add Manual Diff / Slide Review NO; Basophils Absolute Auto 0 /uL (0-100); Basophils Percent Auto 0.3 % (0-2); Eosinophils Absolute Auto 200 /uL (0-450); Eosinophils Percent Auto 2.9 % (2-4); Hematocrit 52.4 % (36-46); Hemoglobin 17.3 g/dL (12.0-16.0); Lymphocytes Absolute Auto 3000 /uL (1100-4500); Lymphocytes Percent Auto 48.8 % (25-40); Mean Corpuscular HGB Conc 33.1 % (30-36); Mean Corpuscular Hemoglobin 29.8 PG (26-34); Mean Corpuscular Volume 90.1 fL (80-100); Monocytes Absolute Auto 600 /uL (0-900); Monocytes Percent Auto 10.1 % (3-14); Neutrophils Absolute Auto 2300 /uL (1500-7000); Neutrophils Percent Auto 37.9 % (50-75); Platelet Count 247 X10^3/uL (150-400); Red Blood Cell Count 5.81 X10^6/uL (4.0-5.2); Red Cell Distribution Width 13.8 % (11.6-14.8); White Blood Cell Count 6.2 X10^3/uL (4.5-11.0)
[2020-06-16 14:43] LABS: Alanine Aminotransferase 13 IU/L (<35); Albumin 4.4 g/dL (3.5-5.0); Albumin Globulin Ratio 1.5 (1.0-2.8); Alkaline Phosphatase 105 U/L (38-126); Aspartate Aminotransferase 24 IU/L (14-36); BUN Creatinine Ratio 26.3 (6-22); Bilirubin Total 0.5 mg/dL (0.2-1.3); Blood Urea Nitrogen 21 mg/dL (7-17); Calcium 9.9 mg/dL (8.4-10.2); Carbon Dioxide 29 mmol/L (22-32); Chloride 106 mmol/L (98-107); Estimated Glomerular Filt Rate > 60.0 mL/min (>60); Gamma Glutamyl Transpeptidase 16 U/L (12-43); Glucose 86 mg/dL (70-100); Sodium 139 mmol/L (137-145); Total Protein 7.4 g/dL (6.3-8.2)
[2020-06-16 15:08] LABS: HEMOLYSIS 26 (0-50)
[2020-06-16 15:09] LABS: Thyroid Stimulating Hormone 1.33 uIU/mL (0.47-4.68)
[2020-06-16 15:10] LABS: Potassium 6.2 mmol/L (3.4-5.1)
== END ==
PROVIDERS: Visit Provider Family Medicine
DX: Z00.00 Encounter for general adult medical examination without abnormal findings (principal)
CPT/HCPCS: 80053; 82977; 84443; 85025; 86769

== ENCOUNTER → 2021-04-09 10:15 | Outpatient (CLI) | payer OTHER, SELFPAY ==
[2017-12-13 10:15] VITALS: BMI 187.6
--- NOTE | 2021-04-09 | DI.RAD.S_ITS ---
PROCEDURE: XR KNEE RT 3V INDICATIONS: RIGHT KNEE PAIN TECHNIQUE: Three views of the knee were acquired. COMPARISON: None. FINDINGS: Bones: No fractures or dislocations. No suspicious bony lesions. Soft tissues: No joint effusion. No suspicious soft tissue calcifications. IMPRESSION: Intact right knee. Dictated by: Mercy Diaz M.D. on 04/09/2021 at 13:04 Approved by: Mercy Diaz M.D. on 04/09/2021 at 13:05
== END ==
LOC: RAD 10:16
PROVIDERS: PCP Family Medicine; Referring Provider Family Medicine; Visit Provider Family Medicine
DX: M25.561 Pain in right knee (principal)
CPT/HCPCS: 73562

== ENCOUNTER → 2021-07-11 08:49 | Outpatient (CLI) | payer OTHER, SELFPAY ==
[2017-12-13 10:15] VITALS: BMI 187.6
[2021-07-11 09:31] LABS: COVID19 -Nasal RAPID Negative (Negative)
== END ==
PROVIDERS: PCP Family Medicine; Visit Provider Physician Assistant
DX: R05.9 Cough, unspecified (principal); R09.89 Other specified symptoms and signs involving the circulatory and respiratory systems; R09.81 Nasal congestion
CPT/HCPCS: 87635

== ENCOUNTER 2021-12-07 10:25 | Emergency (ER) | payer OTHER, SELFPAY ==
[2017-12-13 10:15] VITALS: BMI 187.6
[2021-12-07] VITALS (8 sets, daily range): BP systolic 148–191; BP diastolic 89–117; PULSE 80–106; RESP 18; TEMP 36.4; O2SAT 94–98; BMI 28.1
[2021-12-07] MEDS: ONDANSETRON 4 MG/2 ML INJ IV (10:50)
[2021-12-07 11:12] LABS: Bacteria Urine Many (>30); Culture Indicated Urine Cult Not Indicated; RBC Urine None Seen (0-5/HPF); Squamous Epithelial Cell Urine 5-10 /HPF (0-5/HPF); WBC Urine 5-10/HPF (0-5/HPF)
[2021-12-07] MEDS: SODIUM CHLORIDE 0.9% 1,000 ML 1000 ML IV ×2 (11:17→13:06)
[2021-12-07] MEDS: PANTOPRAZOLE 40 MG VIAL IV (11:17)
[2021-12-07 11:19] LABS: Add Manual Diff / Slide Review NO; Basophils Absolute Auto 100 /uL (0-100); Basophils Percent Auto 0.6 % (0-2); Eosinophils Absolute Auto 200 /uL (0-450); Eosinophils Percent Auto 1.5 % (2-4); Hemoglobin 17.9 g/dL (12.0-16.0); Lymphocytes Absolute Auto 1500 /uL (1100-4500); Lymphocytes Percent Auto 12.7 % (25-40); Mean Corpuscular HGB Conc 33.8 % (30-36); Mean Corpuscular Hemoglobin 30.2 PG (26-34); Mean Corpuscular Volume 89.5 fL (80-100); Monocytes Absolute Auto 700 /uL (0-900); Monocytes Percent Auto 5.6 % (3-14); Neutrophils Absolute Auto 9600 /uL (1500-7000); Neutrophils Percent Auto 79.6 % (50-75); Platelet Count 242 X10^3/uL (150-400); Red Blood Cell Count 5.92 X10^6/uL (4.0-5.2); Red Cell Distribution Width 13.5 % (11.6-14.8); White Blood Cell Count 12.1 X10^3/uL (4.5-11.0)
[2021-12-07 11:27] LABS: Prothrombin Time 11.1 SECONDS (10.1-12.7)
[2021-12-07 11:30] LABS: PTT Partial Thromboplastin Tim 33 SECONDS (26.4-36.2)
[2021-12-07 11:31] LABS: Alanine Aminotransferase 18 IU/L (<35); Albumin 4.9 g/dL (3.5-5.0); Albumin Globulin Ratio 1.4 (1.0-2.8); Alkaline Phosphatase 101 U/L (38-126); Aspartate Aminotransferase 28 IU/L (14-36); BUN Creatinine Ratio 18.6 (6-22); Bilirubin Total 0.7 mg/dL (0.2-1.3); Blood Urea Nitrogen 16 mg/dL (7-17); Calcium 9.6 mg/dL (8.4-10.2); Carbon Dioxide 30 mmol/L (22-32); Chloride 105 mmol/L (98-107); Estimated Glomerular Filt Rate > 60 mL/min (>60); Globulin 3.6 g/dL (1.7-4.1); Glucose 114 mg/dL (80-110); HEMOLYSIS 36 (0-50); Lipase 99 U/L (23-300); Potassium 5.1 mmol/L (3.4-5.1); Sodium 142 mmol/L (137-145); Total Protein 8.5 g/dL (6.3-8.2)
--- NOTE | 2021-12-07 12:14 | ED_ITS ---
HPI - Abdominal Pain General Chief Complaint: Abdominal Pain Stated Complaint: back & stomach hurt throw up bile Time Seen by Provider: 12/07/21 11:13 History of Present Illness HPI narrative: Patient is a healthy 61-year-old female history of hypertension presenting today with vomiting abdominal pain and diarrhea. She says it started about 2 days ago. She has a she was little bit better yesterday but with started having he vomiting and multiple episodes of diarrhea this morning. She denies dizziness or lightheadedness. She has some cramping in her stomach as well. She is not running a fever pain now she is feeling better after Zofran. She denies any chest pain shortness of breath dizziness or lightheadedness. She denies any recent antibiotics or hospitalizations. Related Data Home Medications Medication Instructions Recorded Confirmed lisinopril 10 mg tablet 10 mg PO DAILY 07/11/21 07/11/21 Previous Rx's Medication Instructions Recorded ondansetron 4 mg disintegrating 4 mg PO Q8H PRN #10 tab 12/07/21 tablet Allergies Allergy/AdvReac Type Severity Reaction Status Date / Time iodine Allergy Severe SWELLING Verified 07/11/21 08:23 Review of Systems Review of Systems Narrative: GENERAL: Denies chills, fatigue, malaise, fever, sweats, travel HEENT: Denies sinus pain, ear pain, sore throat, difficulty swallowing, neck pain RESPIRATORY: Denies dyspnea, cough, wheezing, hemoptysis, sputum. CARDIOVASCULAR: Denies chest pain, palpitations, orthopnea, edema GASTROINTESTINAL: See HPI : Denies dysuria, frequency, incontinence, hematuria, urinary retention, flank pain. MUSCULOSKELETAL: Denies weakness, joint pain, or bony pain SKIN: No rash, no erythema, no pruritus NEUROLOGIC: Denies weakness, dizziness, headache, numbness, change in speech, confusion PSYCHIATRIC: No concerning psychosocial issues. 12 point review of systems is negative except for those stated above and HPI Patient History Medical History (Updated 12/07/21 @ 13:57 by Lady Rosario DO) Current every day smoker Distal radius fracture, left Social History household members: spouse and children Smoking Status: Current every day smoker alcohol intake: never Smoking Status: Current every day smoker tobacco type: cigarettes alcohol intake frequency: 0-2 drinks per day Substance Use Type: does not use Exam Initial Vital Signs Initial Vital Signs: Vital Signs Temperature 97.6 F 12/07/21 10:27 Pulse Rate 99 H 12/07/21 10:27 Respiratory Rate 18 12/07/21 10:27 Blood Pressure 191/117 H 12/07/21 10:27 Pulse Oximetry 98 12/07/21 10:27 GENERAL: Alert pleasant 61-year-old female acute distress HEENT: Head atraumatic,EOMI, pupils reactive, face symmetric, mildly dry mucous membranes CARDIOVASCULAR: Regular rate and rhythm without murmurs, rubs or gallops. RESPIRATORY: Breath sounds equal bilaterally, no wheezes rales or rhonchi. ABDOMEN: Soft, tender right upper quadrant no guarding no rebound home minimal epigastric EXTREMITIES: Normal range of motion, no clubbing or edema. Neurovascularly intact NEUROLOGICAL: Alert and oriented x4.Normal gait and speech. SKIN: Warm, dry, no laceration, no petechiae, no rashes or lesions. Course Orders Ordered: ED Orders 12/07/21 10:31 EKG-12 Lead Stat 12/07/21 10:53 GI Panel (Film Array) Stat Urine Microscopic Stat 12/07/21 11:10 Complete Blood Count AUTO DIFF Stat Comprehensive Metabolic Panel Stat Lipase Stat Partial Thromboplastin Time Stat Prothrombin Time INR Stat 12/07/21 12:54 US abdomen limited Stat Discontinued Medications Sodium Chloride (Normal Saline 0.9%) 1,000 mls @ 1,000 mls/hr IV BOLUS ONE Stop: 12/07/21 12:12 Last Infusion: 12/07/21 12:15 Dose: 0 mls/hr Documented by: Admin: 12/07/21 11:17 Dose: 1,000 mls/hr Documented by: MEGA Sodium Chloride (Normal Saline 0.9%) 1,000 mls @ 1,000 mls/hr IV BOLUS ONE Stop: 12/07/21 13:53 Last Infusion: 12/07/21 14:00 Dose: 0 mls/hr Documented by: Admin: 12/07/21 13:06 Dose: 1,000 mls/hr Documented by: OBED Ondansetron HCl (Ondansetron 4 Mg/2 Ml Inj) 4 mg IV NOW ONE Stop: 12/07/21 10:32 Last Admin: 12/07/21 10:50 Dose: 4 mg Documented by: ANAY Pantoprazole Sodium (Pantoprazole 40 Mg Vial) 40 mg IV NOW ONE Stop: 12/07/21 11:14 Last Admin: 12/07/21 11:17 Dose: 40 mg Documented by: MEGA Vital Signs Vital signs: Vital Signs - 8 hr 12/07/21 11:38 12/07/21 11:41 12/07/21 12:00 Pulse Rate 106 H 100 H 91 H Blood Pressure 158/95 H 152/92 H Pulse Oximetry 95 94 96 12/07/21 12:30 12/07/21 13:01 12/07/21 13:30 Pulse Rate 84 80 82 Blood Pressure 148/89 H Pulse Oximetry 97 96 96 12/07/21 13:56 Pulse Rate 87 Blood Pressure 161/89 H Pulse Oximetry 98 MDM - Abdominal Pain Lab Data Result diagrams: 12/07/21 11:10 12/07/21 11:10 Labs: Lab Results 12/07/21 12/07/21 12/07/21 Range/Units 10:53 10:53 11:10 WBC 12.1 H (4.5-11.0) X10^3/uL RBC 5.92 H (4.0-5.2) X10^6/uL Hgb 17.9 H (12.0-16.0) g/dL Hct 53.0 H (36-46) % MCV 89.5 (80-100) fL MCH 30.2 (26-34) PG MCHC 33.8 (30-36) % RDW 13.5 (11.6-14.8) % Plt Count 242 (150-400) X10^3/uL Neut % (Auto) 79.6 H (50-75) % Lymph % (Auto) 12.7 L (25-40) % [place] % (Auto) 5.6 (3-14) % Eos % (Auto) 1.5 L (2-4) % Baso % (Auto) 0.6 (0-2) % Neut # (Auto) 9600 H (8200-8697) /uL Lymph # (Auto) 1500 (2398-4209) /uL [place] # (Auto) 700 (0-900) /uL Eos # (Auto) 200 (0-450) /uL Baso # (Auto) 100 (0-100) /uL PT (10.1-12.7) SECONDS INR (0.9-1.3) APTT (26.4-36.2) SECONDS Sodium (137-145) mmol/L Potassium (3.4-5.1) mmol/L Chloride (98-107) mmol/L Carbon Dioxide (22-32) mmol/L BUN (7-17) mg/dL Creatinine (0.52-1.04) mg/dL Estimated GFR (>60) mL/min BUN/Creatinine Ratio (6-22) Glucose (80-110) mg/dL Calcium (8.4-10.2) mg/dL Total Bilirubin (0.2-1.3) mg/dL AST (14-36) IU/L ALT (<35) IU/L Alkaline Phosphatase (38-126) U/L Total Protein (6.3-8.2) g/dL Albumin (3.5-5.0) g/dL Globulin (1.7-4.1) g/dL Albumin/Globulin Ratio (1.0-2.8) Lipase (23-300) U/L Urine RBC None seen (0-5/HPF) Urine WBC 5-10/hpf H (0-5/HPF) Ur Squamous Epith Cells 5-10 /hpf H (0-5/HPF) Urine Bacteria Many (>30) H (None) Ur Culture Indicated? Cult not indicated Stl C. cayetanensis PCR Not detected (Not Detect) Stool Rotavirus (PCR) Not detected (Not Detect) Stool Adenovirus (PCR) Not detected (Not Detect) Stool Astrovirus (PCR) Not detected (Not Detect) Stool Cryptosporidium PCR Not detected (Not Detect) Stl E.coli Shiga Tox PCR Not detected (Not Detect) St Sh/Enteroin Ecoli PCR Not detected (Not Detect) Stool E coli O157 PCR Not Reportable Stl Enterotoxigenic E PCR Not detected (Not Detect) Stool EPEC (PCR) Not detected (Not Detect) Stl E. histolytica PCR Not detected (Not Detect) Stool Giardia Lamblia PCR Not detected (Not Detect) Stool Sapovirus (PCR) Not detected (Not Detect) Stl P. shigelloides PCR Not detected (Not Detect) St Y.enterocolitica PCR Not detected (Not Detect) Stool Vibrio (PCR) Not detected (Not Detect) Stl Vibrio cholerae PCR Not detected (Not Detect) Stl Enteroaggr Ecoli PCR Not detected (Not Detect) Stl Norovirus GI/GII PCR Detected H (Not Detect) Campylobacter (PCR) Not detected (Not Detect) C. difficile Tox (PCR) Not detected (Not Detect) Salmonella (PCR) Not detected (Not Detect) 12/07/21 12/07/21 Range/Units 11:10 11:10 WBC (4.5-11.0) X10^3/uL RBC (4.0-5.2) X10^6/uL Hgb (12.0-16.0) g/dL Hct (36-46) % MCV (80-100) fL MCH (26-34) PG MCHC (30-36) % RDW (11.6-14.8) % Plt Count (150-400) X10^3/uL Neut % (Auto) (50-75) % Lymph % (Auto) (25-40) % [place] % (Auto) (3-14) % Eos % (Auto) (2-4) % Baso % (Auto) (0-2) % Neut # (Auto) (3015-7655) /uL Lymph # (Auto) (1227-2671) /uL [place] # (Auto) (0-900) /uL Eos # (Auto) (0-450) /uL Baso # (Auto) (0-100) /uL PT 11.1 (10.1-12.7) SECONDS INR 1.0 (0.9-1.3) APTT 33 (26.4-36.2) SECONDS Sodium 142 (137-145) mmol/L Potassium 5.1 (3.4-5.1) mmol/L Chloride 105 (98-107) mmol/L Carbon Dioxide 30 (22-32) mmol/L BUN 16 (7-17) mg/dL Creatinine 0.86 (0.52-1.04) mg/dL Estimated GFR > 60 (>60) mL/min BUN/Creatinine Ratio 18.6 (6-22) Glucose 114 H (80-110) mg/dL Calcium 9.6 (8.4-10.2) mg/dL Total Bilirubin 0.7 (0.2-1.3) mg/dL AST 28 (14-36) IU/L ALT 18 (<35) IU/L Alkaline Phosphatase 101 (38-126) U/L Total Protein 8.5 H (6.3-8.2) g/dL Albumin 4.9 (3.5-5.0) g/dL Globulin 3.6 (1.7-4.1) g/dL Albumin/Globulin Ratio 1.4 (1.0-2.8) Lipase 99 (23-300) U/L Urine RBC (0-5/HPF) Urine WBC (0-5/HPF) Ur Squamous Epith Cells (0-5/HPF) Urine Bacteria (None) Ur Culture Indicated? Stl C. cayetanensis PCR (Not Detect) Stool Rotavirus (PCR) (Not Detect) Stool Adenovirus (PCR) (Not Detect) Stool Astrovirus (PCR) (Not Detect) Stool Cryptosporidium PCR (Not Detect) Stl E.coli Shiga Tox PCR (Not Detect) St Sh/Enteroin Ecoli PCR (Not Detect) Stool E coli O157 PCR Stl Enterotoxigenic E PCR (Not Detect) Stool EPEC (PCR) (Not Detect) Stl E. histolytica PCR (Not Detect) Stool Giardia Lamblia PCR (Not Detect) Stool Sapovirus (PCR) (Not Detect) Stl P. shigelloides PCR (Not Detect) St Y.enterocolitica PCR (Not Detect) Stool Vibrio (PCR) (Not Detect) Stl Vibrio cholerae PCR (Not Detect) Stl Enteroaggr Ecoli PCR (Not Detect) Stl Norovirus GI/GII PCR (Not Detect) Campylobacter (PCR) (Not Detect) C. difficile Tox (PCR) (Not Detect) Salmonella (PCR) (Not Detect) Point of care testing: Urine Dip Bedside Urine Glucose Negative Bedside Urine Bilirubin + 1 Bedside Urine Ketone - Negative Urine Specific [place] 1.030 Bedside Urine Occult Blood - Negative Bedside Urine pH 6.0 Bedside Urine Protein - Negative Bedside Urine Urobilinogen - Negative Bedside Urine Nitrite + Positive Bedside Urine Leukocytes - Negative Esterase Imaging Data US - abdomen: Radiologist's Impression: TETE Frias [id number] Ultrasound Report Signed Patient: Amelia Walker MR#: [id number] : 1960 Acct:[id number] Age/Sex: 61 / F Date of Service: 12/07/21 Loc: ED Accession Number: [id number] ?? Procedure: US abdomen limited Ordering Provider: Lady Rosario D.O. PROCEDURE: US ABDOMEN LIMITED ? INDICATIONS:? RUQ PAIN ? TECHNIQUE:? Real-time focused scanning was performed of the abdomen, with image documentation.? ? COMPARISON:? [facility], CT, CT ABDOMEN PELVIS W CON, 12/11/2017, 17:37.? [facility], US, US ABDOMEN COMPLETE, 07/22/2017, 7:23. ? FINDINGS:? The liver demonstrates normal size. The liver demonstrates generalized slightly increased echogenicity. This decreases ultrasound sensitivity for detection of hepatic masses.? ? Cholecystectomy. ? There is no biliary dilatation, the common bile duct measures 4-5 mm.? ? No significant pancreatic abnormality is seen on these images.? IMPRESSION:? Status post cholecystectomy, without biliary dilatation. ? Normal size liver, likely mild fatty liver infiltration. ? ? Dictated by: Joseph Nunez M.D. on 12/07/2021 at 12:32 ? ? Approved by: Joseph Nunez M.D. on 12/07/2021 at 12:33 ? ECG Data Interpretation: Normal sinus rhythm rate 92 GA interval 152 QRS [address] changes Q-waves noted in lead 3 only simlar to prior in 2018 MDM Narrative Medical decision making narrative: The patient has had nausea vomiting diarrhea abdominal pain. She is mildly tender in right upper quadrant. No significant elevation of liver enzymes bilirubin or lipase. Ultrasound is negative. GI panel does return positive for norovirus. With legs most of her symptoms. She is overall feeling better after Zofran and fluids. No need for any further workup for admission. She is tolerating oral fluids. We discussed oral rehydration and when to return to the ED. Discharge Plan Departure Patient Disposition: Home Clinical Impression: Norovirus Instructions: Norovirus Infection Activity Restrictions/Additional Instructions: *You have been diagnosed with norovirus *What to do: Increase fluid intake as tolerated. Recommend Pedialyte or Gat orade like substance. *Continue to take medications as directed Zofran 4 mg every 8 hours if needed for nausea or vomiting--> SENT TO [facility] Tylenol 650 mg every 4-6 hours if needed for raew-gp-ikdrvvhr pain Ibuprofen 600 mg every 6-8 hours if needed for kese-my-samuukvc pain *Follow up with your primary care provider in 2-3 days or call [phone] *Return to ER if you should have persistent vomiting, dizziness, lightheadedness, increasing pain or any new, worsening or concerning symptoms Prescriptions: New ondansetron 4 mg tablet,disintegrating 4 mg PO Q8H PRN (Reason: nausea and vomiting) Qty: 10 0RF No Action lisinopril 10 mg tablet 10 mg PO DAILY 0RF Referrals: Natalia Garcia MD [Primary Care Provider] -
[2021-12-07 12:48] LABS: Adenovirus F 40/41 Not Detected (Not Detect); Astrovirus Not Detected (Not Detect); Campylobacter Not Detected (Not Detect); Clostridium difficile toxin AB Not Detected (Not Detect); Cryptosporidium Not Detected (Not Detect); Cyclospora cayetanensis Not Detected (Not Detect); Entamoeba histolytica Not Detected (Not Detect); Enteroaggregative E.coli Not Detected (Not Detect); Enteropathogenic E.coli Not Detected (Not Detect); Enterotoxigenic E.coli It/st Not Detected (Not Detect); Giardia lamblia Not Detected (Not Detect); Norovirus GI/GII Detected (Not Detect); Plesiomonsa shigelloides Not Detected (Not Detect); Rotavirus A Not Detected (Not Detect); Salmonella Not Detected (Not Detect); Sapovirus Not Detected (Not Detect); Shiga-like toxin-prod E.coli Not Detected (Not Detect); Shigella/Enteroinvasive E.coli Not Detected (Not Detect); Vibrio Not Detected (Not Detect); Vibrio cholerae Not Detected (Not Detect); Yersinia enterocolitica Not Detected (Not Detect)
--- NOTE | 2021-12-07 12:54 | DI.US.S_ITS ---
PROCEDURE: US ABDOMEN LIMITED INDICATIONS: RUQ PAIN TECHNIQUE: Real-time focused scanning was performed of the abdomen, with image documentation. COMPARISON: [facility], CT, CT ABDOMEN PELVIS W CON, 12/11/2017, 17:37. [facility], US, US ABDOMEN COMPLETE, 07/22/2017, 7:23. FINDINGS: The liver demonstrates normal size. The liver demonstrates generalized slightly increased echogenicity. This decreases ultrasound sensitivity for detection of hepatic masses. Cholecystectomy. There is no biliary dilatation, the common bile duct measures 4-5 mm. No significant pancreatic abnormality is seen on these images. IMPRESSION: Status post cholecystectomy, without biliary dilatation. Normal size liver, likely mild fatty liver infiltration. Dictated by: Joseph Nunez M.D. on 12/07/2021 at 12:32 Approved by: Joseph Nunez M.D. on 12/07/2021 at 12:33
== END 2021-12-07 14:00 | disposition home or self-care (01) ==
PROVIDERS: Emergency Provider Emergency Medicine; PCP Family Medicine
DX: A08.11 Acute gastroenteropathy due to Norwalk agent (principal); R19.7 Diarrhea, unspecified; R11.2 Nausea with vomiting, unspecified; R10.11 Right upper quadrant pain
CPT/HCPCS: 36415; 76705; 80053; 81003; 81015; 83690; 85025; 85610; 85730; 87507; 93005; 93010; 96361; 96374; 96375; 99284; C9113; J2405

== ENCOUNTER → 2022-01-12 07:12 | Outpatient (CLI) | payer OTHER, SELFPAY ==
[2017-12-13 10:15] VITALS: BMI 187.6
[2022-01-12 07:35] LABS: COVID19 -Nasal RAPID POSITIVE (Negative)
== END ==
PROVIDERS: PCP Family Medicine; Visit Provider Physician Assistant
DX: U07.1 COVID-19 (principal)
CPT/HCPCS: 87635